=== PATIENT | male | born 1965 | race Caucasian/White ===

== ENCOUNTER 2020-09-26 14:56 | Outpatient (CLI) | payer OTHER, SELFPAY ==
[2020-09-26 15:04] LABS: SARS-CoV-2 Ag Positive (Negative)
== END 2020-09-26 14:57 | disposition home or self-care (01) ==
LOC: CHSLAB 14:59
PROVIDERS: PCP Family Medicine; Visit Provider Family Medicine
DX: U07.1 COVID-19 (principal)
CPT/HCPCS: 87426; C9803

== ENCOUNTER 2023-07-10 18:02 | Emergency (ER) | payer OTHER, MEDICAID, SELFPAY ==
--- NOTE | ~2023-07-10 | CT_ITS ---
EXAMINATION: CT abdomen pelvis wo con DATE: 07/10/2023 18:51 INDICATION: Left flank pain TECHNIQUE: Computed tomography (CT) of the abdomen and pelvis was performed without intravenous contr ast. Automated exposure control and iterative reconstruction technique were employed. The dose-length product was 1678.62 mGy-cm. COMPARISON: None FINDINGS: Mild bibasilar atelectasis. Heart size is normal. No pericardial or pleural effusion. Diffuse hepatic steatosis. Calcified gallstone in the otherwise normal-appearing gallbladder. Spleen, pancreas, bila teral adrenal glands are normal. Bilateral renal cysts the largest a 2.5 cm exophytic cyst at the upp er pole of the left kidney. Bilateral nephrolithiasis with 4 stones in left kidney measuring up to 9 mm and 3 stones in the right kidney measuring up to 4 mm. There are also couple stones in the distal left ureter the larger and more caudal measuring 6 x 5 x 3 mm and the more cephalad measuring 3 x 3 x 3 mm. There is mild left hydroureteronephrosis. Asymmetric moderate to severe atrophy at the right k idney. There is moderate colonic diverticulosis with a sigmoid predominance. There is no adjacent in flammatory change to suggest diverticulitis. Small bowel and appendix are normal. No free intraperit oscar gas or fluid. No pathologically enlarged abdominal or pelvic lymphadenopathy. Moderate thoracol umbar spondylosis with bridging osteophytes at multiple levels consistent with diffuse idiopathic ske letal hyperostosis (DISH). IMPRESSION: 1. Lateral nephrolithiasis with a couple obstructing stones in the distal left ureter the largest mt suring 6 x 5 x 3 mm with mild left hydroureteronephrosis. 2. Cholelithiasis. 3. Diffuse hepatic steatosis. 4. Diverticulosis. Reviewed, dictated and finalized at location A. IMPRESSION: 1. Lateral nephrolithiasis with a couple obstructing stones in the distal left ureter the largest measuring 6 x 5 x 3 mm with mild left hydroureteronephrosis. 2. Cholelithiasis. 3. Diffuse hepatic steatosis. 4. Diverticulosis.
[2023-07-10 18:02] VITALS: BP 183/105; PULSE 120; RESP 28; TEMP 36.3; O2SAT 96
--- NOTE | 2023-07-10 18:34 | ED.GENADULT ---
HPI - General Adult General Chief complaint: Back Pain/Injury Stated complaint: lower left black pain Time Seen by Provider: 07/10/23 18:13 Source: patient Mode of arrival: ambulatory Limitations: no limitations History of Present Illness HPI narrative: 57 yo M with history of kidney stone presents to ED with left flank pain started today. He has history of CKD, diabetes, and was told that one of the kidneys are non-functional. Onset (ago): hour(s) Location: left Radiation: flank Severity: severe Severity scale (1-10): >10 Pain Consistency: constant Relieving factors: none Exacerbating factors: none Associated symptoms: denies other symptoms Treatments prior to arrival: none Related Data Home Medications Medication Instructions Recorded Confirmed acetaminophen 300 mg-codeine 30 mg 1 tablet PO TID PRN Pain 07/10/23 07/10/23 tablet atorvastatin 10 mg tablet 10 mg PO DAILY 07/10/23 07/10/23 cyclobenzaprine 10 mg tablet 10 mg PO TID PRN Pain 07/10/23 07/10/23 ergocalciferol (vitamin D2) 1,250 1,250 mcg PO WEEKLY 07/10/23 07/10/23 mcg (50,000 unit) capsule glipizide 10 mg tablet, extended 20 mg PO DAILY 07/10/23 07/10/23 release 24 hr linagliptin 5 mg tablet (Tradjenta) 5 mg PO DAILY 07/10/23 07/10/23 Allergies Allergy/AdvReac Type Severity Reaction Status Date / Time No Known Allergies Allergy Unverified 12/24/22 10:14 Review of Systems Constitutional: Constitutional: Reports as per HPI and Reports no additional constitutional complaints Eyes: Eyes: Reports as per HPI and Reports no additional eye complaints ENT: Reports system reviewed and no additional complaints, except as documented and Reports as per HPI Cardiovascular: Cardiovascular: Reports as per HPI and Reports no additional cardiovascular complaints Respiratory: Respiratory: Reports as per HPI and Reports no additional respiratory complaints Gastrointestinal: Gastrointestinal: Reports as per HPI and Reports no additional gastrointestinal complaints Genitourinary: Genitourinary: Reports as per HPI Musculoskeletal: Musculoskeletal: Reports no additional musculoskeletal complaints and Reports as per HPI Integumentary/Breasts: Skin/Breast: Reports system reviewed and no additional complaints, except as docu and Reports as per HPI Neurologic: Reports system reviewed and no additional complaints, except as documented and Reports as per HPI Psychiatric: Psychiatric: Reports no additional psychiatric complaints and Reports as per HPI Endocrine: Endocrine: Reports no additional endocrine complaints and Reports as per HPI Hematologic/Lymphatic: Hematologic/Lymphatic: Reports no additional hematologic/lymphatic complaints and Reports as per HPI Allergic/Immunologic: Allergic/Immunologic: Reports no additional allergic/immunologic complaints and Reports as per HPI Exam Const: General: diaphoretic and ill appearing Nutritional Appearance: obese Orientation/consciousness: patient oriented x3 Resp: Effort & Inspection: normal respiratory effort Auscultation: clear to auscultation bilaterally Cardio: Rate: tachycardic Rhythm: regular rhythm GI: Auscultation: normal bowel sounds Back/Spine/Pelvis: Back: CVA tenderness (Left) Course Vital Signs Vital signs: Vital Signs Temperature 97.4 F L 07/10/23 18:02 Pulse Rate 120 H 07/10/23 18:02 Respiratory Rate 28 H 07/10/23 18:02 Blood Pressure 183/105 H 07/10/23 18:02 Pulse Oximetry 96 07/10/23 18:02 Oxygen Delivery Room Air 07/10/23 18:02 Temperature 97.4 F L 07/10/23 18:02 Pulse Rate 120 H 07/10/23 18:02 Respiratory Rate 28 H 07/10/23 18:02 Blood Pressure 183/105 H 07/10/23 18:02 Pulse Oximetry 96 07/10/23 18:02 Oxygen Delivery Room Air 07/10/23 18:02 Medical Decision Making MDM Narrative Medical decision making narrative: 57 yo M presents to ED due to left flank pain. CT scan confirmed bilateral nephrolithiasis with significant left kidney ston
[2023-07-10] MEDS: SODIUM CHLORIDE 0.9% IV 500 ML 999 ML IV CONT (18:52)
[2023-07-10] MEDS: HYDROmorphone HCL INJ (*CRX) 2 MG/ML VIAL 0.5 MG IV PUSH ×2 (18:53→20:51)
[2023-07-10 19:21] LABS: Hematocrit 47.1 % (40.0-54.0); Hemoglobin 15.2 g/dL (14.0-18.0); Mean Corpuscular HGB Conc 32.3 g/dL (32.0-36.0); Mean Corpuscular Hemoglobin 30.3 pg (27.0-31.0); Mean Corpuscular Volume 93.8 fL (78.0-102.0); Mean Platelet Volume 10.6 fl (8.7-11.0); Platelet Count Result 175 K/mm3 (150-420); Red Blood Count 5.02 M/mm3 (4.70-6.10); Red Cell Distribution Width 12.6 % (11.6-14.4); White Blood Count 7.5 K/mm3 (4.8-10.8)
[2023-07-10 19:35] LABS: Alanine Aminotransferase 35 U/L (16-63); Albumin Level 3.3 g/dL (3.4-5.0); Alkaline Phosphatase 84 U/L (46-116); Anion Gap 9 mmol/L (8-16); Aspartate Amino Transferase 25 U/L (15-37); Bilirubin,Total 0.5 mg/dL (0.00-1.00); Blood Urea Nitrogen 17 mg/dL (7-18); Calcium 8.9 mg/dL (8.5-10.1); Carbon Dioxide 26 mmol/L (21-32); Chloride 104 mmol/L (98-108); Estimated CRCL calculation 64 ml/min; Estimated Glomerular Filt Rate 41; Glucose 242 mg/dL (70-99); Osmolality Calculated 297 mOsm/kg (285-295); Potassium 3.9 mmol/L (3.5-5.1); Sodium 139 mmol/L (136-145); Total Protein 7.8 g/dL (6.4-8.2)
[2023-07-10 19:48] LABS: Appearance Urine Clear (Clear); Bilirubin Urine Negative (Negative); Blood Urine 2+ (Negative); Color Urine Light Yellow (Yellow); Glucose Urine UA 3+ (Negative); Ketones Urine Negative (Negative); Leukocyte Esterase Ur Negative LEU/UL (Negative); Nitrate Urine Negative (Negative); Protein Urine Negative (Negative); Urobilinogen Urine 0.2 mg/dL (0.2-1.0)
[2023-07-10 19:59] LABS: Add Urine Microscopic? YES; RBC Urine 0-2 /hpf (0-2)
[2023-07-10 20:22] VITALS: BP 127/87; PULSE 105; RESP 24; TEMP 36.4; O2SAT 96
[2023-07-10] MEDS: TAMSULOSIN HCL 0.4 MG CAPSULE PO (20:50)
== END 2023-07-10 22:13 | disposition short-term general hospital (02) ==
PROVIDERS: Emergency Provider Emergency Medicine; PCP Physician Assistant
DX: N20.0 Calculus of kidney (principal); Z79.899 Other long term (current) drug therapy
CPT/HCPCS: 36415; 74176; 80053; 81001; 85027; 96374; 96376; 99284; A9270; J1170; J7040

== ENCOUNTER 2023-07-10 23:43 | Observation (INO) | payer OTHER, MEDICAID, SELFPAY ==
--- NOTE | ~2023-07-10 | XR_ITS ---
EXAMINATION: XR retrograde pyelo w/stent LT DATE: 07/11/2023 10:02 INDICATION: Left ureteral stone. TECHNIQUE: 6 intraoperative fluoroscopic views of the abdomen and pelvis were obtained. I was not pre sent. Fluoroscopy exposure time was 36 seconds. COMPARISON: CT abdomen and pelvis 07/10/2023 FINDINGS: The left-sided retrograde pyelogram demonstrates a stone in the distal left ureter. The fin al images demonstrate a left internal ureteral stent in expected position. IMPRESSION: 1. Stone in distal left ureter. 2. Left internal ureteral stent in expected position. Reviewed, dictated and finalized at location A.
[2023-07-10 23:05] VITALS: BMI 50.5
--- NOTE | 2023-07-10 23:18 | ADMGEN ---
This patient, Ralf Ramos, was admitted to Medical Room 258-01. Patient/family oriented to hospital policies and general routines including ID bracelet, bed and alarms, visiting hours, pain management, procedures, bathroom and other care routines, personal items, smoking policy, room service/diet, and visiting hours. Information on how to activate the Rapid Response Team has been discussed. Patient/Family are encouraged to report perceived risks to care and to ask questions if they do not understand what they are told or what they should do.
[2023-07-10 23:48] VITALS: BP 147/72; PULSE 97; RESP 20; TEMP 36.7; O2SAT 95
[2023-07-10] MEDS: MORPHINE SULFATE (*CRX) 2 MG/ML INJ IV PUSH (23:51)
--- NOTE | 2023-07-10 23:55 | PM.IMHP ---
H&P: HPI History of Present Illness Date/Time: 07/10/23 23:55 Chief Complaint: Left flank pain Narrative: 57-year-old gentleman who has a past medical history of obesity diabetes mellitus hypertension CKD presents with left flank pain for the last 1 day associated with nausea vomiting. . His pain a 210 density is partially relieved with pain medication. He does have increased frequency urgency and burning while passing urine. He denies fever chills sweating. He occasionally has shortness of breath with pain but denies chest pain. He denies focal neurological weakness Review of Systems Review of Systems: All systems reviewed & are unremarkable except as noted in HPI and below Constitutional: Constitutional: Reports as per HPI Gastrointestinal: Gastrointestinal: Reports abdominal pain and Reports vomiting [facility] Social History Social History (System 12/24/22 @ 10:14 by Nicko Joyce) Smoking status: Former smoker Tobacco type: cigarettes Alcohol intake: never Substance use: never Substance use type: does not use Lack of Transportation: No Lack of Food: Never True Current Housing: I Have Housing Concerned About Future Housing: No Difficulty Paying Gas/Electric Bills: No Difficulty Paying for Meds: No Currently Unemployed: No Education: High School Diploma/GED Difficulty w/ Childcare or Family Care: No Spiritual care concerns: No Meds Home Medications and Allergies Home Medications Medication Instructions Recorded Confirmed Type acetaminophen 300 mg-codeine 30 mg 1 tablet PO TID PRN Pain 07/10/23 07/10/23 History tablet acetaminophen 500 mg tablet 1,500 mg PO HS PRN Pain (Scale 07/10/23 07/10/23 History (Acetaminophen Extra Strength) Score 4-6) atorvastatin 10 mg tablet 10 mg PO DAILY 07/10/23 07/10/23 History cyclobenzaprine 10 mg tablet 10 mg PO TID PRN Pain 07/10/23 07/10/23 History ergocalciferol (vitamin D2) 1,250 1,250 mcg PO WEEKLY 07/10/23 07/10/23 History mcg (50,000 unit) capsule glipizide 10 mg tablet, extended 20 mg PO DAILY 07/10/23 07/10/23 History release 24 hr linagliptin 5 mg tablet (Tradjenta) 5 mg PO DAILY 07/10/23 07/10/23 History Allergies Allergy/AdvReac Type Severity Reaction Status Date / Time No Known Allergies Allergy Unverified 12/24/22 10:14 Vital Signs Vital Signs - 24 hr 07/10/23 23:05 07/10/23 23:48 Temperature 98.1 F Pulse Rate 97 Respiratory Rate 20 Blood Pressure 147/72 H Pulse Oximetry 95 Oxygen Delivery Room Air Exam Narrative: General : alert awake oriented in mild distress HEENT: PERRLA extraocular movements intact Neck : supple no JVD Heart : S1 and S2 Chest : bilateral air entry no wheezing or crackles Abdomen : soft tenderness left flank bowel sounds present Extremities : no ankle edema Skin : no erythema or redness noted 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 Cholelithiasis.. Diffuse hepatic steatosis.. Diverticulosis. UA is unremarkable NPO IV fluid Pain medication Antiemetics Urology consulted (2) Diabetes 1.5, managed as type 2: Code(s): E13.9 - Other specified diabetes mellitus without complications Status: Acute Assessment and Plan: Monitor blood glucose a.c. HS nose Low-dose sliding scale insulin Hold oral anti diabetics Restart off the intervention (3) CKD (chronic kidney disease): Code(s): N18.9 - Chronic kidney disease, unspecified Status: Acute Assessment and Plan: Creatinine is 1.73 Gentle hydration Monitor labs
[2023-07-11] VITALS (12 sets, daily range): BP systolic 104–161; BP diastolic 8–91; PULSE 75–93; RESP 12–20; TEMP 36.2–36.6; O2SAT 92–100
[2023-07-11] MEDS: SODIUM CHLORIDE 0.9% IV 1,000 ML 100 ML IV CONT ×3 (02:17→13:58)
[2023-07-11] MEDS: MORPHINE SULFATE (*CRX) 2 MG/ML INJ IV PUSH ×2 (02:31→05:12)
[2023-07-11 05:16] LABS: Hematocrit 48.2 % (42.0-52.0); Mean Corpuscular HGB Conc 31.1 g/dl (32-36); Mean Corpuscular Hemoglobin 29.9 pg (26-34); Platelet Count Result 164 k/mm3 (150-375); Red Blood Count 5.02 M/mm3 (4.6-6.20); Red Cell Distribution Width 12.7 % (11.5-14.5); White Blood Count 10.3 K/mm3 (4.5-10.0)
[2023-07-11 05:27] LABS: Anion Gap 5 mmol/L (8-16); Blood Urea Nitrogen 23 mg/dL (9-20); Carbon Dioxide 27 mmol/L (22-30); Chloride 104 mmol/L (98-107); Estimated CRCL calculation 48 ml/min; Estimated Glomerular Filt Rate 29; Glucose 207 mg/dL (65-110); Potassium 5.3 mmol/L (3.4-5.0); Sodium 136 mmol/L (137-145)
[2023-07-11 08:02] LABS: Glucose Point of Care 177 mg/dl (65-105)
[2023-07-11] MEDS: ACETAMINOPHEN/CODEINE (*CRX) 300/30 MG TABLET 1 TAB PO (08:06)
--- NOTE | 2023-07-11 08:57 | WPDURCON ---
Assessment and Plan Assessment and plan (1) Left ureteral stone: Code(s): N20.1 - Calculus of ureter Status: Acute Assessment and Plan: Left ureteral stone, appears to be functionally dominant kidney. Cr rising. Plan to OR for cysto, L stent today, possible URS with extraction of distal stone if close to orifice. Will need definitive stone managment down the line given larger lower pole stone. - risks, benefits discussed. Consent provided. (2) CKD (chronic kidney disease): Code(s): N18.9 - Chronic kidney disease, unspecified Status: Acute Assessment and Plan: baseline somewhat unknown, but reports he's been told he has poor kidney funciton. Cr 1.7 last night to 2.3 this AM. Suspect left renal obstruction is contributory Urology Consult Note HPI Date Seen: 07/11/23 Requesting Physician: Alcon Cook MD Primary Care Provider: Leo Sanchez, [facility] Consult Narrative Narrative: Ralf Ramos is a 57 year old male with history of CKD, DM, COPD here with left flank pain x24 hours who came to ER last night and was found to have a 6 mm distal left ureteral stone and larger lower pole stone in what appears functionally dominant kidney. He was admitted overnight. Pain control given. His Cr jose a this morning to 2.3. Has been afebrile. reports diminished urine output. Review of Systems Review of Systems: All systems reviewed & are unremarkable except as noted in HPI and below [facility] Social History Social History Smoking status: Former smoker Tobacco type: cigarettes Alcohol intake: never Substance use: never Substance use type: does not use Lack of Transportation: No Lack of Food: Never True Current Housing: I Have Housing Concerned About Future Housing: No Difficulty Paying Gas/Electric Bills: No Difficulty Paying for Meds: No Currently Unemployed: No Education: High School Diploma/GED Difficulty w/ Childcare or Family Care: No Spiritual care concerns: No Meds Home Medications and Allergies Home Medications Medication Instructions Recorded Confirmed Type acetaminophen 300 mg-codeine 30 mg 1 tablet PO TID PRN Pain 07/10/23 07/10/23 History tablet acetaminophen 500 mg tablet 1,500 mg PO HS PRN Pain (Scale 07/10/23 07/10/23 History (Acetaminophen Extra Strength) Score 4-6) atorvastatin 10 mg tablet 10 mg PO DAILY 07/10/23 07/10/23 History cyclobenzaprine 10 mg tablet 10 mg PO TID PRN Pain 07/10/23 07/10/23 History ergocalciferol (vitamin D2) 1,250 1,250 mcg PO WEEKLY 07/10/23 07/10/23 History mcg (50,000 unit) capsule glipizide 10 mg tablet, extended 20 mg PO DAILY 07/10/23 07/10/23 History release 24 hr linagliptin 5 mg tablet (Tradjenta) 5 mg PO DAILY 07/10/23 07/10/23 History Allergies Allergy/AdvReac Type Severity Reaction Status Date / Time No Known Allergies Allergy Unverified 12/24/22 10:14 Vital Signs Vital Signs - 24 hr 07/10/23 23:05 07/10/23 23:48 07/11/23 04:47 Temperature 36.7 C 36.2 C L Pulse Rate 97 89 Respiratory Rate 20 20 Blood Pressure 147/72 H 161/91 H Pulse Oximetry 95 97 Oxygen Delivery Room Air 07/11/23 07:57 Temperature 36.3 C L Pulse Rate 93 Respiratory Rate 18 Blood Pressure 149/80 H Pulse Oximetry 96 Oxygen Delivery Exam Narrative: lying in bed, NAD Resp: Other: non-labored Cardio: Rate: regular rate GI: Inspection: non-distended GI Palp: Yes Soft to palpation, No Tenderness to palpation present (GI) and No Guarding due to palpation present (GI) : Male General Exam: Yes normal external exam Results Labs 07/11/23 04:39 07/11/23 04:39 Labs: Short CBC 07/11/23 Range/Units 04:39 WBC 10.3 H (4.5-10.0) K/mm3 Hgb 15.0 (14.0-18.0) g/dL Hct 48.2 (42.0-52.0) % Plt Count 164 (150-375) k/mm3 [facility] 07/11/23 04:39 Sodium 136 L Pota
--- NOTE | 2023-07-11 09:01 | WPDANESEPPF ---
Anes - Initial Pre Proc Eval Procedure: Operation Date: 07/11/23 09:00 Proposed Procedures p Cysto, RPG, Stone Ext, Stent Placement(Left) - Isauro Torres MD Date/Time: 07/11/23 09:01 Surgeon: Alcon Cook MD Pre Op Diagnosis: Nephrolithiasis Patient Data Age: 57 Gender: M Height: 1.78 m Weight: 159.8 kg Last Vital Signs Temp 36.3 C L 07/11/23 07:57 Pulse 93 07/11/23 07:57 Resp 18 07/11/23 07:57 BP 149/80 H 07/11/23 07:57 Pulse Ox 96 07/11/23 07:57 O2 Del Method Room Air 07/10/23 23:05 Allergies Allergy/AdvReac Type Severity Reaction Status Date / Time No Known Allergies Allergy Unverified 12/24/22 10:14 Home Medications Medication Instructions Recorded Confirmed Type acetaminophen 300 mg-codeine 30 mg 1 tablet PO TID PRN Pain 07/10/23 07/10/23 History tablet acetaminophen 500 mg tablet 1,500 mg PO HS PRN Pain (Scale 07/10/23 07/10/23 History (Acetaminophen Extra Strength) Score 4-6) atorvastatin 10 mg tablet 10 mg PO DAILY 07/10/23 07/10/23 History cyclobenzaprine 10 mg tablet 10 mg PO TID PRN Pain 07/10/23 07/10/23 History ergocalciferol (vitamin D2) 1,250 1,250 mcg PO WEEKLY 07/10/23 07/10/23 History mcg (50,000 unit) capsule glipizide 10 mg tablet, extended 20 mg PO DAILY 07/10/23 07/10/23 History release 24 hr linagliptin 5 mg tablet (Tradjenta) 5 mg PO DAILY 07/10/23 07/10/23 History Laboratory Tests 07/11/23 07/11/23 04:39 07:59 WBC 10.3 H K/mm3 (4.5-10.0) RBC 5.02 M/mm3 (4.6-6.20) Hgb 15.0 g/dL (14.0-18.0) Hct 48.2 % (42.0-52.0) MCV 96.0 fl (80-100) MCH 29.9 pg (26-34) MCHC 31.1 L g/dl (32-36) RDW 12.7 % (11.5-14.5) Plt Count 164 k/mm3 (150-375) MPV 11.0 H fl (7.4-10.4) Sodium 136 L mmol/L (137-145) Potassium 5.3 H mmol/L (3.4-5.0) Chloride 104 mmol/L (98-107) Carbon Dioxide 27 mmol/L (22-30) Anion Gap 5 L mmol/L (8-16) BUN 23 H mg/dL (9-20) Creatinine 2.30 H mg/dL (0.7-1.3) Estim Creat Clear Calc 48 ml/min Estimated GFR 29 L (59 - ) Glucose 207 H mg/dL (65-110) POC Capillary Glucose 177 H mg/dl (65-105) Calcium 9.0 mg/dL (8.4-10.2) Patient hx anesthesia problems: post op nausea/vomiting Family hx anesthesia problems: none Results Review: All pre-operative results and documents have been reviewed as part of the pre-operative evaluation. [facility] Social History Social History Smoking status: Former smoker Tobacco type: cigarettes Alcohol intake: never Substance use: never Substance use type: does not use Lack of Transportation: No Lack of Food: Never True Current Housing: I Have Housing Concerned About Future Housing: No Difficulty Paying Gas/Electric Bills: No Difficulty Paying for Meds: No Currently Unemployed: No Education: High School Diploma/GED Difficulty w/ Childcare or Family Care: No Spiritual care concerns: No Anes - Eval Final PreProcedure Day of Procedure 07/11/23 09:01 Patient weight: super morbidly obese Heart: regular rate and rhythm Lungs: clear to auscultation Airway: Mallampati scale class II Neurological: alert and oriented Last oral intake: >/= 8 hours ASA classification: III Emergent: no Anesthetic plan: proceed Anesthesia type and monitoring: general GIVS and LMA and standard monitoring Results Review: All pre-operative results and documents have been reviewed as part of the pre-operative evaluation. Informed Consent: The patient's anesthetic plan and its attendant risks and benefits were discussed with the patient/family/POA. Questions were solicited and answers provided to the satisfaction of the patient/family/POA.
--- NOTE | 2023-07-11 09:10 | PC.NURSE ---
Patient taken down to PACU for procedure
--- NOTE | 2023-07-11 09:14 | SUR.PREOP ---
PATIENT TO OR AT 0913. CONSENT SIGNED.
[2023-07-11] MEDS: ceFAZolin SODIUM 1 GM VIAL 3 GM IV PUSH (09:23)
[2023-07-11] MEDS: LIDOCAINE HCL 2% GEL UROJET 10 ML PKG MUCOUS MEM (09:27)
--- NOTE | 2023-07-11 09:55 | W.PM.PROC2 ---
Procedure Note - Detailed Date of Procedure 07/11/23 Pre-op Diagnosis Nephrolithiasis Acute kidney injury Post-op Diagnosis Same Procedure Performed Cystoscopy Left retrograde pyelogram Left ureteroscopy Laser lithotripsy Stone extraction Left ureteral stent placement Surgeon Isauro Torres MD Anesthesia General Indications Patient is a 57-year-old man with history of nephrolithiasis who presented yesterday with left flank pain was found to have multiple stones including a 7 mm distal left stone with creatinine elevation in what appears to be functionally dominant left kidney. Findings Large firm stone in distal ureter able to be fragmented fully removed Description of Procedure After obtaining informed consent we proceed to the operating room. The patient was placed in the supine position. General anesthesia was induced. SCD boots were placed. He was given dose of antibiotics. He was then placed in lithotomy position and prepped and draped in usual sterile manner. We began by passing a well lubricated 22 Gabonese cystoscope to the urethra. There were no abnormalities along the course of the urethra. We entered the bladder. The bladder is emptied of all urine. We performed a funduscopic evaluation of bladder there were no unexpected mucosal findings. We focused on the left ureteral orifice. This was cannulated with 5 Gabonese catheter. After obtaining telephone maintenance mechanic images gentle retrograde pyelogram was performed. This demonstrated a filling defect in distal ureter consistent with stone and proximal dilation. A zip wire was passed alongside the stone up into an upper pole calyx. The cystoscope was withdrawn. An 8-10 dilator was used to dilate the distal ureter. No obvious purulent urine was visualized coming from above the stone. Given this the patient has normal urinalysis I elected to perform ureteroscopy. Semi. Rigid ureteral scope was passed into the distal ureter. The stone was visualized 2 cm proximal to the UVJ. An initial attempt was made to grasp this with a Nitinol basket and extracted however there was resistance in the intramural tunnel. Given his 200 micron laser fiber was passed. The stone was fragmented into 5 small pieces. These were grasped with a basket and withdrawn. There was no evidence of ureteral injury perforation or other unexpected issue. Ureteroscopic evaluation of the ureter to above the iliacs demonstrated no residual stone fragments. Scope was withdrawn. The cystoscope was reintroduced and all stone fragments were irrigated from the bladder collected and sent for analysis. Next a 6 Gabonese variable length stent was passed over the wire. There was good curl in a upper pole calyx or in the course of the ureter with good curl within the bladder. The bladder is emptied. A Fried catheter was placed. This concluded the procedure which the patient tolerated without apparent complication. We will have him return to the floor with Fried in place and monitor renal function overnight. Assuming it is improving hopefully he can be discharged home tomorrow. He will need follow-up for stent and management of the remaining nonobstructing stone small left kidney. Implants Six Gabonese variable length ureteral stent Estimated Blood Loss 2 (ml) Urine Output 50
[2023-07-11 10:13] LABS: Glucose Point of Care 164 mg/dl (65-105)
[2023-07-11] MEDS: fentaNYL CITRATE INJ (*CRX) 100 MCG/2 ML VIAL 25 MCG IV PUSH ×6 (10:20→11:18)
--- NOTE | 2023-07-11 11:35 | PC.NURSE ---
Patient returned from surgery, report received from Katherine ADAME
[2023-07-11 11:51] LABS: Glucose Point of Care 160 mg/dl (65-105)
[2023-07-11 11:59] LABS: Carbon Dioxide 23 mmol/L (22-30); Chloride 106 mmol/L (98-107); Potassium 5.2 mmol/L (3.4-5.0); Sodium 138 mmol/L (137-145)
[2023-07-11 12:00] LABS: Anion Gap 9 mmol/L (8-16); Blood Urea Nitrogen 23 mg/dL (9-20); Calcium 8.7 mg/dL (8.4-10.2); Estimated CRCL calculation 41 ml/min; Estimated Glomerular Filt Rate 24; Glucose 176 mg/dL (65-110)
[2023-07-11] MEDS: ATORVASTATIN 10 MG TABLET PO (12:24)
--- NOTE | 2023-07-11 14:27 | PM.IMPN ---
Progress Note: A&P Assessment and Plan (1) Bilateral nephrolithiasis: Code(s): N20.0 - Calculus of kidney Status: Acute Assessment and Plan: CT abdomen pelvis shows lateral nephrolithiasis with a couple of structuring stones with the largest measuring in the left ureter 6 x 5 x 3 mm with mild left hydroureteronephrosis. UA no signs of infection. IV fluids Pain medication antiemetics p.r.n. Urology consult appreciate recommendations Cystoscopy with lithotripsy and stent placement performed on 07/11/2023 Urinary catheter placed (2) Diabetes 1.5, managed as type 2: Code(s): E13.9 - Other specified diabetes mellitus without complications Status: Acute Assessment and Plan: Monitor blood glucose a.c. HS nose Low-dose sliding scale insulin Hold oral anti diabetics (3) CKD (chronic kidney disease): Code(s): N18.9 - Chronic kidney disease, unspecified Status: Acute Assessment and Plan: Creatinine is 1.73 on admission. Worsened to 2.3 today Gentle hydration Monitor labs Subjective Date/time seen: 07/11/23 14:27 Interval history: Patient states that his pain is well controlled. He is very tired will after his procedure. Urinary catheter placed. Will likely discontinue catheter tomorrow. Exam Narrative: GENERAL: Comfortable, no acute distress HENMT: moist mucous membranes EYES: EOM intact b/l NECK: no lymphadenopathy RESPIRATORY: clear to auscultation CARDIO: RRR GI: soft, nontender, bowel sounds present SKIN: no rashes EXTREMITIES: no edema, redness or tenderness Objective Data Vital Signs Vital Signs: Vital Signs - 24 hr 07/10/23 23:05 07/10/23 23:48 07/11/23 04:47 Temperature 98.1 F 97.2 F L Pulse Rate 97 89 Respiratory Rate 20 20 Blood Pressure 147/72 H 161/91 H Pulse Oximetry 95 97 Oxygen Delivery Room Air Oxygen Flow Rate 07/11/23 07:57 07/11/23 08:20 07/11/23 10:04 Temperature 97.4 F L 97.1 F L Pulse Rate 93 91 Respiratory Rate 18 12 Blood Pressure 149/80 H 133/65 Pulse Oximetry 96 100 Oxygen Delivery Room Air Simple Face Mask Oxygen Flow Rate 8 07/11/23 10:15 07/11/23 10:30 07/11/23 10:45 Temperature Pulse Rate 77 77 79 Respiratory Rate 15 13 18 Blood Pressure 122/70 123/69 127/8 L Pulse Oximetry 100 100 94 Oxygen Delivery Simple Face Mask Simple Face Mask Room Air Oxygen Flow Rate 8 8 07/11/23 11:00 07/11/23 11:15 07/11/23 11:34 Temperature 97.3 F L Pulse Rate 76 78 75 Respiratory Rate 13 17 20 Blood Pressure 121/73 121/66 140/67 Pulse Oximetry 93 96 95 Oxygen Delivery Room Air Room Air Oxygen Flow Rate 07/11/23 11:45 Temperature 97.6 F Pulse Rate 75 Respiratory Rate 18 Blood Pressure 132/60 Pulse Oximetry 94 Oxygen Delivery Oxygen Flow Rate Intake/Output Intake/Output: Intake & Output 07/08/23 07/09/23 07/10/23 07/11/23 23:59 23:59 23:59 23:59 Intake Total 950 Output Total 470 Balance 480 Meds/Results Medications: Active Medications Generic Name Dose Route Start Last Admin Trade Name Freq PRN Reason Stop Dose Admin Acetaminophen 1,000 mg 07/11/23 14:05 Acetaminophen 500 Mg Tablet PO HS PRN Pain at night (with flexeril) Acetaminophen/Codeine Phosphate 1 tab 07/10/23 23:46 07/11/23 08:06 Acetaminophen/Codeine (*Crx) 300/30 Mg Tablet PO 1 tab TID PRN Administration Pain 4-6 Atorvastatin Calcium 10 mg 07/11/23 09:00 07/11/23 12:24 Atorvastatin 10 Mg Tablet PO 10 mg DAILY MINOO Administration Cyclobenzaprine HCl 10 mg 07/10/23 23:46 Cyclobenzaprine Hcl 10 Mg Tablet PO TID PRN LOWER BACK PAIN Dextrose 12.5 gm 07/10/23 23:44 Dextrose 50% 25 Gm/50 Ml Syringe IV PUSH PRN PRN Hypoglycemia Protocol Ergocalciferol 50,000 units 07/24/23 09:00 Ergocalciferol 50,000 Units Capsule PO Sa@0900 [facility] Glipizide 20 mg 07/12/23
[2023-07-11 16:32] LABS: Glucose Point of Care 222 mg/dl (65-105)
[2023-07-11] MEDS: INSULIN ASPART (*BKC) 100 UNITS/ML SUB-Q (16:33)
[2023-07-11 19:44] LABS: Glucose Point of Care 256 mg/dl (65-105)
[2023-07-11] MEDS: ACETAMINOPHEN 500 MG TABLET 1000 MG PO (22:56)
[2023-07-11] MEDS: CYCLOBENZAPRINE HCL 10 MG TABLET PO (22:57)
[2023-07-12] MEDS: SODIUM CHLORIDE 0.9% IV 1,000 ML 100 ML IV CONT ×3 (01:00→18:09)
[2023-07-12 05:26] LABS: Hematocrit 43.9 % (42.0-52.0); Mean Corpuscular HGB Conc 31.9 g/dl (32-36); Mean Corpuscular Hemoglobin 30.4 pg (26-34); Mean Corpuscular Volume 95.4 fl (80-100); Mean Platelet Volume 11.3 fl (7.4-10.4); Platelet Count Result 173 k/mm3 (150-375); Red Cell Distribution Width 12.8 % (11.5-14.5); White Blood Count 10.3 K/mm3 (4.5-10.0)
[2023-07-12 05:39] LABS: Alanine Aminotransferase 24 U/L (6-50); Albumin Level 3.8 g/dL (3.5-5.1); Alkaline Phosphatase 70 U/L (38-126); Anion Gap 7 mmol/L (8-16); Aspartate Amino Transferase 27 U/L (17-59); Bilirubin,Total 0.7 mg/dL (0.2-1.3); Blood Urea Nitrogen 23 mg/dL (9-20); Calcium 8.6 mg/dL (8.4-10.2); Carbon Dioxide 23 mmol/L (22-30); Chloride 107 mmol/L (98-107); Estimated CRCL calculation 46 ml/min; Estimated Glomerular Filt Rate 28; Glucose 179 mg/dL (65-110); Potassium 4.6 mmol/L (3.4-5.0); Sodium 137 mmol/L (137-145)
[2023-07-12 05:43] VITALS: BP 116/55; PULSE 67; RESP 18; TEMP 36.7; O2SAT 94
--- NOTE | 2023-07-12 07:56 | WPDANESPN ---
Anes - Prog Note Post-Op Date/Time: 07/12/23 07:56 Cardiovascular status: normal Respiratory status: normal Airway patency: baseline Mental status: baseline Post-Op hydration status: normal Vital Signs: Last Vital Signs Temp 36.7 C 07/12/23 05:43 Pulse 67 07/12/23 05:43 Resp 18 07/12/23 05:43 BP 116/55 L 07/12/23 05:43 Pulse Ox 94 07/12/23 05:43 O2 Del Method Room Air 07/11/23 20:00 O2 Flow Rate 8 07/11/23 10:30 Pain Score (VAS): 12/04 I/O: Intake & Output 07/11/23 07/11/23 07/12/23 15:59 23:59 07:59 Intake Total 1190 1590 550 Output Total 945 583 5343 Balance 970 690 -1050 Laboratory Tests 07/12/23 04:30 07/12/23 04:30 07/11/23 07/11/23 07/11/23 07:59 10:11 11:46 WBC RBC Hgb Hct MCV MCH MCHC RDW Plt Count MPV Sodium 138 Potassium 5.2 H Chloride 106 Carbon Dioxide 23 Anion Gap 9 BUN 23 H Creatinine 2.70 H Estim Creat Clear Calc 41 Estimated GFR 24 L Glucose 176 H POC Capillary Glucose 177 H 164 H 160 H Calcium 8.7 Total Bilirubin AST ALT Alkaline Phosphatase Total Protein Albumin 07/11/23 07/11/23 07/12/23 16:29 19:39 04:30 WBC 10.3 H RBC 4.60 Hgb 14.0 Hct 43.9 MCV 95.4 MCH 30.4 MCHC 31.9 L RDW 12.8 Plt Count 173 MPV 11.3 H Sodium 137 Potassium 4.6 Chloride 107 Carbon Dioxide 23 Anion Gap 7 L BUN 23 H Creatinine 2.40 H Estim Creat Clear Calc 46 Estimated GFR 28 L Glucose 179 H POC Capillary Glucose 222 H 256 H Calcium 8.6 Total Bilirubin 0.7 AST 27 ALT 24 Alkaline Phosphatase 70 Total Protein 8.0 Albumin 3.8 Post-procedural complaints: none Patient Feedback: Patient satisfied with anesthetic care.
[2023-07-12 08:00] VITALS: O2SAT 94
[2023-07-12] MEDS: glipiZIDE XL 5 MG TABCR 20 MG PO (08:06)
[2023-07-12] MEDS: ATORVASTATIN 10 MG TABLET PO (08:07)
[2023-07-12 08:09] LABS: Glucose Point of Care 144 mg/dl (65-105)
[2023-07-12 11:24] LABS: Glucose Point of Care 198 mg/dl (65-105)
[2023-07-12] MEDS: polyethylene glycoL 3350 17 GM POWD.PACK PO (13:48)
[2023-07-12] MEDS: DOCUSATE SODIUM 100 MG CAPSULE PO (13:48)
[2023-07-12 14:00] VITALS: BP 127/60; PULSE 84; RESP 16; TEMP 36.7; O2SAT 93
--- NOTE | 2023-07-12 15:19 | PM.IMPN ---
Progress Note: A&P Assessment and Plan (1) Bilateral nephrolithiasis: Code(s): N20.0 - Calculus of kidney Status: Inactive Assessment and Plan: CT abdomen pelvis shows lateral nephrolithiasis with a couple of structuring stones with the largest measuring in the left ureter 6 x 5 x 3 mm with mild left hydroureteronephrosis. UA no signs of infection. IV fluids Pain medication antiemetics p.r.n. Urology consult appreciate recommendations Cystoscopy with lithotripsy and stent placement performed on 07/11/2023 Urinary catheter placed (2) Diabetes 1.5, managed as type 2: Code(s): E13.9 - Other specified diabetes mellitus without complications Status: Acute Assessment and Plan: Monitor blood glucose a.c. HS nose Low-dose sliding scale insulin Hold oral anti diabetics (3) CKD (chronic kidney disease): Code(s): N18.9 - Chronic kidney disease, unspecified Status: Acute Assessment and Plan: Creatinine is 1.73 on admission. Creatinine trend: 1.7, 2.3, 2.7, 2.4.. Gentle hydration Monitor labs Subjective Date/time seen: 07/12/23 15:19 Interval history: Patient doing well today and eager for discharge. Discussed with patient that his creatinine is still elevated at that it would be sullivan to continue IV fluids and monitoring for 1 more day. will plan on removing catheter in the morning unless urology recommends otherwise. Patient denies any pain. Exam Narrative: GENERAL: Comfortable, no acute distress HENMT: moist mucous membranes EYES: EOM intact b/l NECK: no lymphadenopathy RESPIRATORY: clear to auscultation CARDIO: RRR GI: soft, nontender, bowel sounds present SKIN: no rashes EXTREMITIES: no edema, redness or tenderness Objective Data Vital Signs Vital Signs: Vital Signs - 24 hr 07/11/23 20:00 07/11/23 21:10 07/12/23 05:43 Temperature 97.9 F 98.0 F Pulse Rate 82 67 Respiratory Rate 18 18 Blood Pressure 107/57 L 116/55 L Pulse Oximetry 92 94 Oxygen Delivery Room Air 07/12/23 08:00 07/12/23 14:00 Temperature 98.0 F Pulse Rate 84 Respiratory Rate 16 Blood Pressure 127/60 Pulse Oximetry 94 93 Oxygen Delivery Room Air Intake/Output Intake/Output: Intake & Output 1007/10/23 07/11/23 07/12/23 23:59 23:59 23:59 23:59 Intake Total 2780 2270 Output Total 1370 1600 Balance 1410 670 Meds/Results Medications: Active Medications Generic Name Dose Route Start Last Admin Trade Name Freq PRN Reason Stop Dose Admin Acetaminophen 1,000 mg 07/11/23 14:05 07/11/23 22:56 Acetaminophen 500 Mg Tablet PO 1,000 mg HS PRN Administration Pain at night (with flexeril) Acetaminophen/Codeine Phosphate 1 tab 07/10/23 23:46 07/11/23 08:06 Acetaminophen/Codeine (*Crx) 300/30 Mg Tablet PO 1 tab TID PRN Administration Pain 4-6 Atorvastatin Calcium 10 mg 07/11/23 09:00 07/12/23 08:07 Atorvastatin 10 Mg Tablet PO 10 mg DAILY MINOO Administration Cyclobenzaprine HCl 10 mg 07/10/23 23:46 07/11/23 22:57 Cyclobenzaprine Hcl 10 Mg Tablet PO 10 mg TID PRN Administration LOWER BACK PAIN Dextrose 12.5 gm 07/10/23 23:44 Dextrose 50% 25 Gm/50 Ml Syringe IV PUSH PRN PRN Hypoglycemia Protocol Docusate Sodium 100 mg 07/12/23 12:58 07/12/23 13:48 Docusate Sodium 100 Mg Capsule PO 100 mg Q12H PRN Administration Constipation Ergocalciferol 50,000 units 07/24/23 09:00 Ergocalciferol 50,000 Units Capsule PO Sa@0900 MINOO Glipizide 20 mg 07/12/23 09:00 07/12/23 08:06 Glipizide Xl 5 Mg Tabcr PO 20 mg DAILY MINOO Administration Glucagon 1 mg 07/10/23 23:44 Glucagon For Inj 1 Mg Vial IM PRN PRN Hypoglycemia Protocol Glucose 15 gm 07/10/23 23:44 Glucose Oral Gel 15 Gm Of Glucse In 37.5 Gm Tube PO PRN PRN Hypoglycemia Protocol Hydralazine HCl 10 mg 06/27
[2023-07-12 16:57] LABS: Glucose Point of Care 152 mg/dl (65-105)
[2023-07-12] MEDS: CYCLOBENZAPRINE HCL 10 MG TABLET PO (18:46)
[2023-07-12] MEDS: ACETAMINOPHEN 500 MG TABLET 1000 MG PO (18:46)
[2023-07-12 20:15] LABS: Glucose Point of Care 181 mg/dl (65-105)
[2023-07-12 20:30] VITALS: BP 139/71; PULSE 81; RESP 18; TEMP 36.8; O2SAT 95
[2023-07-12] MEDS: ACETAMINOPHEN/CODEINE (*CRX) 300/30 MG TABLET 1 TAB PO (21:19)
[2023-07-13] MEDS: ACETAMINOPHEN 500 MG TABLET 1000 MG PO (01:09)
[2023-07-13] MEDS: CYCLOBENZAPRINE HCL 10 MG TABLET PO (01:10)
[2023-07-13 04:46] VITALS: BP 123/74; PULSE 69; RESP 18; TEMP 37.1; O2SAT 94
[2023-07-13 05:58] LABS: Hematocrit 44.1 % (42.0-52.0); Hemoglobin 13.8 g/dL (14.0-18.0); Mean Corpuscular HGB Conc 31.3 g/dl (32-36); Mean Corpuscular Hemoglobin 30.7 pg (26-34); Mean Platelet Volume 11.1 fl (7.4-10.4); Platelet Count Result 173 k/mm3 (150-375); Red Cell Distribution Width 12.9 % (11.5-14.5); White Blood Count 8.4 K/mm3 (4.5-10.0)
[2023-07-13 06:11] LABS: Anion Gap 5 mmol/L (8-16); Blood Urea Nitrogen 23 mg/dL (9-20); Calcium 8.4 mg/dL (8.4-10.2); Carbon Dioxide 27 mmol/L (22-30); Chloride 107 mmol/L (98-107); Estimated CRCL calculation 65 ml/min; Estimated Glomerular Filt Rate 41; Glucose 131 mg/dL (65-110); Potassium 4.2 mmol/L (3.4-5.0); Sodium 139 mmol/L (137-145)
[2023-07-13 08:00] VITALS: O2SAT 94
[2023-07-13 08:37] LABS: Glucose Point of Care 111 mg/dl (65-105)
[2023-07-13] MEDS: ATORVASTATIN 10 MG TABLET PO (09:06)
[2023-07-13] MEDS: DOCUSATE SODIUM 100 MG CAPSULE PO (09:06)
[2023-07-13] MEDS: polyethylene glycoL 3350 17 GM POWD.PACK PO (09:06)
[2023-07-13] MEDS: glipiZIDE XL 5 MG TABCR 20 MG PO (09:06)
--- NOTE | 2023-07-13 10:18 | PM.DS ---
DS: Admitting Diagnosis Discharge Date 07/13/23 Admitting Diagnosis Left ureteral stone, CHARLY DS: Discharge Diagnosis Discharge Diagnosis (1) Bilateral nephrolithiasis: Code(s): N20.0 - Calculus of kidney Status: Inactive (2) Diabetes 1.5, managed as type 2: Code(s): E13.9 - Other specified diabetes mellitus without complications Status: Acute (3) CKD (chronic kidney disease): Code(s): N18.9 - Chronic kidney disease, unspecified Status: Acute DS: Summary Hospital Course Hospital Course: This is the 57-year-old male with a past medical history of diabetes, CKD, and hyperlipidemia the presented to the ED on 07/10/2023 due to left flank pain, nausea vomiting. CT abdomen pelvis revealed a 6 x 5 x 3 mm left ureteral stone with associated hydroureteronephrosis. Urology consulted. Patient underwent left ureteroscopy, lithotripsy and stent placement on 07/11/2023. Patient's creatinine on admission was 1.7 and trended up to 2.7 prior to ureteroscopy. Patient had urinary catheter placed and creatinine went back down to 1.7 on day of discharge. Patient's urine was negative for infection. He remained on IV fluids throughout his hospital stay due to CHARLY. Advised to follow-up with urology as an outpatient in 7-10 days. Labs and vital signs are stable and he is medically cleared for discharge at this time. Time Spent with Patient Time attestation: Total time spent providing and/or coordinating discharge services: Exam Narrative: GENERAL: Comfortable, no acute distress HENMT: moist mucous membranes EYES: EOM intact b/l NECK: no lymphadenopathy RESPIRATORY: clear to auscultation CARDIO: RRR GI: soft, nontender, bowel sounds present SKIN: no rashes EXTREMITIES: no edema, redness or tenderness DS: Data Data Completed and Pending Pending studies at discharge: Pending at discharge 07/11/23 09:54 Surgical [PTH] Routine Labs on day of discharge: Labs from last 24 hours 07/13/23 07/13/23 07/12/23 08:32 05:05 20:11 WBC 8.4 RBC 4.50 L Hgb 13.8 L Hct 44.1 MCV 98.0 MCH 30.7 MCHC 31.3 L RDW 12.9 Plt Count 173 MPV 11.1 H Sodium 139 Potassium 4.2 Chloride 107 Carbon Dioxide 27 Anion Gap 5 L BUN 23 H Creatinine 1.70 H Estim Creat Clear Calc 65 Estimated GFR 41 L Glucose 131 H POC Capillary Glucose 111 H 181 H Calcium 8.4 07/12/23 07/12/23 16:54 11:20 WBC RBC Hgb Hct MCV MCH MCHC RDW Plt Count MPV Sodium Potassium Chloride Carbon Dioxide Anion Gap BUN Creatinine Estim Creat Clear Calc Estimated GFR Glucose POC Capillary Glucose 152 H 198 H Calcium Discharge Plan Discharge Attending physician on discharge: Christopher Beasley Consulting providers: Isauro Torres Discharging Clinician: Kelsey Mejía Patient Disposition: Home, Self-Care Activity: as tolerated Diet: diabetic Discharge Instructions: Discharge instructions: Return to the emergency department if:Nausea vomiting, fever, difficulty urinating, blood in the urine, severe pain May use Tylenol, ibuprofen or Advil for increased pain. Take medication as directed. Increase liquid intake. Strain urine each time he used the bathroom if urology advises.. Limit the amount of oxalate in your diet. this is found in the most common type of kidney stone. Foods that contain this are potatoes, seeds and nuts, wheat, so way, spinach, raspberries, chocolate, grapefruit juice or orange juice. Follow-up with urology in 7-10 days. Thank you for [facility]! Patient Instructions: Antibiotic Form, Fried Catheter Placement and Care (ED) Stand Alone Forms: General Discharge Information Follow-up/Referrals: Isauro Torres MD [Physician] - Ken Lizarraga MD [Physician] - Discharge Medications: Continued cyclobenzap
--- NOTE | 2023-07-13 11:36 | PC.NURSE ---
On 07/13/23, the student, [Susy Mendieta], provided care and completed [facility] documentation on this patient. I have reviewed the student's documentation and agree with the findings.
== END 2023-07-13 11:53 | disposition home or self-care (01) ==
PROVIDERS: Internal Medicine Critical Care Medicine; Physician Assistant; Urology; Admitting Provider Internal Medicine; PCP Physician Assistant; Visit Provider Internal Medicine
PROC: (CPT 52352; principal; 2023-07-11 09:00)
DX: N13.2 Hydronephrosis with renal and ureteral calculous obstruction (principal); N17.9 Acute kidney failure, unspecified; I12.9 Hypertensive chronic kidney disease with stage 1 through stage 4 chronic kidney disease, or unspecified chronic kidney disease; E13.22 Other specified diabetes mellitus with diabetic chronic kidney disease; N18.9 Chronic kidney disease, unspecified; R06.02 Shortness of breath; E66.9 Obesity, unspecified; Z68.43 Body mass index [BMI] 50.0-59.9, adult; Z87.891 Personal history of nicotine dependence; Z79.82 Long term (current) use of aspirin; Z79.84 Long term (current) use of oral hypoglycemic drugs; Z79.899 Other long term (current) drug therapy
CPT/HCPCS: 52356; 52352; 36415; 74420; 80048; 80053; 82365; 82948; 85027; 88300; 96374; 96375; 96376; A9270; C1758; C1769; C2617; G0378; G0379; J0690; J1100; J1815; J2250; J2270; J2405; J2704; J3010; J7030; Q9966

== ENCOUNTER 2023-07-18 14:59 | Inpatient (IN) | payer OTHER, MEDICAID, SELFPAY ==
[2023-07-18] VITALS (7 sets, daily range): BP systolic 140–157; BP diastolic 66–86; PULSE 106–126; RESP 20–22; TEMP 37.2–39.3; O2SAT 95–100
--- NOTE | ~2023-07-18 | XR_ITS ---
XR chest PICC line DATE: 07/24/2023 11:29 INDICATION: PICC line placement TECHNIQUE: Portable upright AP chest on 07/24/2023 1113 hours COMPARISON: 07/19/2023 portable AP chest at 2016 hours FINDINGS: Interval placement of right upper extremity PIC catheter in superior vena cava. Surgical clips are noted along the lower medial right cervical area. [place] devices of left humeral h ead. Normal heart size. Mild aortic arch calcification. No hilar or mediastinal enlargement. Minimal atelectasis or infiltrate is suggested in the lower lung zones. The lungs otherwise appear cl ear. No pulmonary vascular congestion, pleural effusion or pneumothorax is evident. IMPRESSION: Right upper extremity PIC catheter in superior vena cava Reviewed, dictated and finalized at [facility]. Reviewed, dictated and finalized at [facility].
--- NOTE | ~2023-07-18 | XR_ITS ---
EXAM: XR abdomen/kub 1V DATE: 07/18/2023 15:44 HISTORY: stent eval . COMPARISON: 07/11/2023 and 12/24/2017. FINDINGS: Streaky bibasilar scar/atelectasis. Normal bowel gas pattern. No organomegaly. Degenerativ e changes in the spine and hips. Left ureteral stent, with uncoiling of the proximal coil which still appears to project over the expected location of the left kidney and is stable since the prior study . Normal-appearing distal coil projecting over the expected location of the bladder. IMPRESSION: Unchanged left ureteral stent, in good position. Reviewed, dictated and finalized at location [facility].
--- NOTE | ~2023-07-18 | CT_ITS ---
EXAMINATION: CT abdomen pelvis w con DATE: 07/18/2023 21:24 INDICATION: abdominal pain, fever, RLQ tender, L ureter stent TECHNIQUE: Computed tomography (CT) of the abdomen and pelvis was performed with 100 mL Omnipaque-350 intravenous contrast. Automated exposure control and iterative reconstruction technique were employe d. The dose-length product was 1634.27 mGy-cm. COMPARISON: 07/10/2023; x-ray abdomen 07/18/2023. FINDINGS: Lower thorax: Minimal bibasilar scar/atelectasis. Liver: Mildly enlarged. Diffuse fatty infiltration. Subcentimeter right lobe hypodensity, too small t o characterize but most likely represents a cyst or hemangioma. Biliary/Gallbladder: Cholelithiasis. No bile duct dilation. Pancreas: Fatty infiltration. Spleen: Normal. Adrenals:No mass. Kidneys: Right renal atrophy and cortical scarring. Bilateral simple right cysts and lesions that are too small to characterize. Left ureteral stent terminating in an upper pole calyx. No hydronephrosis . Bilateral nonobstructing calculi. Mild bilateral perinephric stranding. GI tract: Fatty infiltration of the gastric wall. No small or large bowel dilation. Normal appendix. Diverticulosis without diverticulitis. Mesentery/Peritoneum: No ascites, mass, or free air. Retroperitoneum: No mass. Atherosclerotic abdominal aortic and/or arterial calcifications. Pelvis: A Fried decompresses the urinary bladder. The distal coil of the left ureteral stent terminat es in the bladder. Soft Tissues: Soft tissues and body wall unremarkable. Bones: No acute osseous finding. IMPRESSION: Hepatic steatosis and hepatomegaly. Cholelithiasis without CT evidence of cholecystitis. Submucosal fat deposition in the stomach likely from chronic gastritis. Diverticulosis without CT evidence of diverticulitis. Left ureteral stent, in stable and good position. No acute abdominopelvic process detected. Reviewed, dictated and finalized at location K.
--- NOTE | ~2023-07-18 | XR_ITS ---
EXAMINATION: XR chest 1V portable Exam Date/Time: 07/19/2023 20:15 CDT HISTORY: fever and new cough Comparison: None. RESULT: Lines, tubes, and devices: Surgical clips in the right neck. Lungs and pleura: Antilordotic positioning. Low volumes with crowding. Diffuse mild reticular opacit ies. Cardiomediastinal silhouette: Stable. Other: No acute osseous or upper abdominal finding. IMPRESSION: Mild interstitial edema. Reviewed, dictated and finalized at location K. IMPRESSION: Mild interstitial edema.
[2023-07-18] MEDS: SODIUM CHLORIDE 0.9% IV 1,000 ML 999 ML IV CONT ×2 (15:46→17:47)
--- NOTE | 2023-07-18 15:47 | ED.MALEGU ---
HPI - Male Genitourinary General Chief complaint: Urogenital-Male Stated complaint: kidney stones Time Seen by Provider: 07/18/23 15:09 History of Present Illness HPI Narrative: Patient is a 57-year-old male who presents ER with urinary retention. He has barely been able to urinate today only to about a couple of laps. He was moving left stenting for a kidney stone 1 week ago. He had the stone extracted at that time. He has been taking Tylenol 3 for his pain at home. He has not been on any antibiotics. Denies fevers or chills or sweats. No dysuria. No fevers chills or sweats. Bladder scan (200 mL of urine. Related Data Home Medications Medication Instructions Recorded Confirmed acetaminophen 300 mg-codeine 30 mg 1 tablet PO TID PRN Pain 07/10/23 07/10/23 tablet acetaminophen 500 mg tablet 1,500 mg PO HS PRN Pain (Scale 07/10/23 07/10/23 (Acetaminophen Extra Strength) Score 4-6) atorvastatin 10 mg tablet 10 mg PO DAILY 07/10/23 07/10/23 cyclobenzaprine 10 mg tablet 10 mg PO TID PRN Pain 07/10/23 07/10/23 ergocalciferol (vitamin D2) 1,250 1,250 mcg PO WEEKLY 07/10/23 07/10/23 mcg (50,000 unit) capsule glipizide 10 mg tablet, extended 20 mg PO DAILY 07/10/23 07/10/23 release 24 hr linagliptin 5 mg tablet (Tradjenta) 5 mg PO DAILY 07/10/23 07/10/23 Allergies Allergy/AdvReac Type Severity Reaction Status Date / Time No Known Allergies Allergy Verified 07/18/23 15:02 Review of Systems Review of Systems: All systems reviewed & are unremarkable except as noted in HPI and below Constitutional: Constitutional: Denies chills, Denies fatigue and Denies fever(s) ENT: Denies nasal congestion and Denies sore throat Cardiovascular: Cardiovascular: Denies chest pain, Denies rapid heart rate and Denies radiating jaw, neck or arm pain Respiratory: Respiratory: Denies cough and Denies dyspnea Gastrointestinal: Gastrointestinal: Reports abdominal pain, Denies diarrhea, Denies nausea and Denies vomiting Genitourinary: Genitourinary: Reports oliguria, Denies dysuria and Denies urinary frequency [facility] Past Medical History Medical History (Updated 07/18/23 @ 17:48 by Evan Lloyd MD) CKD (chronic kidney disease) Diabetes 1.5, managed as type 2 Hypertension Kidney stones Ureteral stent present Surgical History Surgical History (Updated 07/18/23 @ 15:49 by Evan Lloyd MD) H/O thyroidectomy Social History Social History Smoking status: Former smoker Tobacco type: cigarettes Alcohol intake: never Substance use: never Substance use type: does not use Lack of Transportation: No Lack of Food: Never True Current Housing: I Have Housing Concerned About Future Housing: No Difficulty Paying Gas/Electric Bills: No Difficulty Paying for Meds: No Currently Unemployed: No Education: High School Diploma/GED Difficulty w/ Childcare or Family Care: No Spiritual care concerns: No Exam Narrative: GENERAL: Well-appearing, obese, and in no acute distress. HEAD: Normocephalic, atraumatic. ENT: Mucous membranes moist. NECK: Supple. CHEST: Clear to auscultation. No respiratory distress. HEART: Regular rate and rhythm. Normal peripheral pulses. ABDOMEN: Soft, nontender, nondistended. EXTREMITIES: Normal range of motion. No edema. SKIN: Warm, dry, no rash. NEURO: Alert and oriented x3. PSYCH: Normal mood and affect. Course Course Emergency Course: Patient spiking a fever. White blood cell count elevated. Urine with potential infection. Given urinary retention with stent and infectious findings patient be admitted to hospitalist service. Ceftriaxone started. Dr. Lizarraga contacted and consulted. Vital Signs Vital signs: Vital Signs Temperature 98.9 F 07/18/23 15:21 Pulse Rate 116 H 07/18/23 15:21 Respiratory Rate 20 07/18/23 15:21 Blood Pressure 157/86 H 07/18/23 15:21 Pulse Oximetry
[2023-07-18 16:03] LABS: Basophils Absolute Auto 0.1 K/mm3 (0.0-0.1); Basophils Percent Auto 0.4 % (0.2-1.2); Eosinophils Absolute Auto 0.1 K/mm3 (0-0.3); Eosinophils Percent Auto 0.7 % (0-4.4); Hematocrit 46.5 % (42.0-52.0); Hemoglobin 14.7 g/dL (14.0-18.0); Immature Granulocyte Absolute 0.13 K/mm3 (0.00-0.031); Lymphocytes Absolute Auto 0.66 K/mm3 (0.9-3.2); Mean Corpuscular HGB Conc 31.6 g/dl (32-36); Mean Corpuscular Hemoglobin 29.8 pg (26-34); Mean Corpuscular Volume 94.1 fl (80-100); Mean Platelet Volume 11.5 fl (7.4-10.4); Monocytes Absolute Auto 1.8 K/mm3 (0.1-0.6); Monocytes Percent Auto 13.2 % (2.6-8.5); Neutrophils Absolute Auto 10.6 K/mm3 (1.3-6.7); Neutrophils Percent Auto 79.7 % (45.5-73.1); Platelet Count Result 202 k/mm3 (150-375); Red Blood Count 4.94 M/mm3 (4.6-6.20); Red Cell Distribution Width 13.1 % (11.5-14.5); White Blood Count 13.2 K/mm3 (4.5-10.0)
[2023-07-18 16:06] LABS: Appearance Urine Clear (Clear); Bacteria Urine None Seen /hpf; Bilirubin Urine Negative (Negative); Blood Urine 2+ (Negative); Color Urine Yellow (Yellow); Glucose Urine UA 1+ mg/dL (Negative); Ketones Urine Negative (Negative); Leukocyte Esterase Ur 1+ LEU/UL (Negative); Nitrate Urine Negative (Negative); Non Pathogenic Casts 0-2; Protein Urine 2+ mg/dL (Negative); RBC Urine 21-50 /hpf (0-2); Specific Grav Ur 1.015 (1.001-1.035); Squamous Epithelial Cell Urine None seen /hpf (Few); pH Urine 6.5 (5.0-9.0)
[2023-07-18 16:09] LABS: Add Urine Microscopic? YES
[2023-07-18 16:12] LABS: Alanine Aminotransferase 22 U/L (6-50); Alkaline Phosphatase 71 U/L (38-126); Anion Gap 11 mmol/L (8-16); Aspartate Amino Transferase 25 U/L (17-59); Blood Urea Nitrogen 18 mg/dL (9-20); Carbon Dioxide 19 mmol/L (22-30); Chloride 103 mmol/L (98-107); Estimated CRCL calculation 61 ml/min; Estimated Glomerular Filt Rate 39; Glucose 183 mg/dL (65-110); Potassium 4.1 mmol/L (3.4-5.0); Sodium 133 mmol/L (137-145)
[2023-07-18] MEDS: ONDANSETRON INJ 4 MG/2 ML VIAL IV PUSH (17:47)
[2023-07-18] MEDS: MORPHINE SULFATE (*CRX) 4 MG/ML INJ IV PUSH (17:47)
--- NOTE | 2023-07-18 18:09 | PM.IMHP ---
H&P: HPI History of Present Illness Date/Time: 07/18/23 18:09 Chief Complaint: Urinary retention, fever Narrative: This is a 57 year old male patient who had a recent hospitalization for obstructing ureteral stone where he underwent stone laser/extraction with left ureteral stent placement. Today patient barely able to urinate. Patient reports 2 days of nausea and vomiting with new onset fever while in the emergency department today. WBC count elevated at 13.2. Patient denies any back pain, states lower abdominal pain only. Fried catheter placed and Urology consulted with recommendation for admission. Patient denies any chest pain difficulty breathing, endorses chills. Review of Systems Review of Systems: All systems reviewed & are unremarkable except as noted in HPI and below PMFSH Past Medical History Medical History CKD (chronic kidney disease) Diabetes 1.5, managed as type 2 Hypertension Kidney stones Ureteral stent present Surgical History Surgical History H/O thyroidectomy Social History Social History Smoking status: Former smoker Tobacco type: cigarettes Alcohol intake: never Substance use: never Substance use type: does not use Lack of Transportation: No Lack of Food: Never True Current Housing: I Have Housing Concerned About Future Housing: No Difficulty Paying Gas/Electric Bills: No Difficulty Paying for Meds: No Currently Unemployed: No Education: High School Diploma/GED Difficulty w/ Childcare or Family Care: No Spiritual care concerns: No Meds Home Medications and Allergies Home Medications Medication Instructions Recorded Confirmed Type acetaminophen 300 mg-codeine 30 mg 1 tablet PO TID PRN Pain 07/10/23 07/18/23 History tablet acetaminophen 500 mg tablet 1,500 mg PO HS PRN Pain (Scale 07/10/23 07/18/23 History (Acetaminophen Extra Strength) Score 4-6) atorvastatin 10 mg tablet 10 mg PO DAILY 07/10/23 07/18/23 History cyclobenzaprine 10 mg tablet 10 mg PO TID PRN Pain 07/10/23 07/18/23 History ergocalciferol (vitamin D2) 1,250 1,250 mcg PO WEEKLY 07/10/23 07/18/23 History mcg (50,000 unit) capsule glipizide 10 mg tablet, extended 20 mg PO DAILY 07/10/23 07/18/23 History release 24 hr linagliptin 5 mg tablet (Tradjenta) 5 mg PO DAILY 07/10/23 07/18/23 History Allergies Allergy/AdvReac Type Severity Reaction Status Date / Time No Known Allergies Allergy Verified 07/18/23 15:02 Vital Signs Vital Signs - 24 hr 07/18/23 15:21 Temperature 37.2 C Pulse Rate 116 H Respiratory Rate 20 Blood Pressure 157/86 H Pulse Oximetry 96 Exam Narrative: GENERAL: Well-appearing, obese, and in no acute distress. HEAD: Normocephalic, atraumatic. ENT: Mucous membranes moist. NECK: Supple. No JVD. CHEST: Clear to auscultation. No respiratory distress. HEART: Regular rate and rhythm. Normal peripheral pulses. ABDOMEN: Soft, rotund, mild RLQ tenderness with mild grimace to palpation, no rebound or guarding GENITOURINARY: Fried catheter draining clear yellow urine EXTREMITIES: Normal range of motion. No edema. SKIN: Warm, dry, no rash. NEURO: Alert and oriented x3. PSYCH: Normal mood and affect. H&P: Results Labs Labs: Short CBC 07/18/23 Range/Units 15:57 WBC 13.2 H (4.5-10.0) K/mm3 Hgb 14.7 (14.0-18.0) g/dL Hct 46.5 (42.0-52.0) % Plt Count 202 (150-375) k/mm3 BMP 07/18/23 15:57 Sodium 133 L Potassium 4.1 Chloride 103 Carbon Dioxide 19 L BUN 18 Creatinine 1.80 H Glucose 183 H Calcium 9.0 Liver Function 07/18/23 Range/Units 15:57 Total Bilirubin 1.0 (0.2-1.3) mg/dL AST 25 (17-59) U/L ALT 22 (6-50) U/L Alkaline Phosphatase 71 (38-126) U/L Albumin 4.0 (3.5-5.1) g/dL Urine 07/18/23 Rang
[2023-07-18] MEDS: ACETAMINOPHEN 500 MG TABLET 1000 MG PO (18:38)
[2023-07-18 20:22] LABS: Hemoglobin A1C 7.3 % (<5.7)
--- NOTE | 2023-07-18 20:26 | PC.NURSE ---
This patient, Ralf Ramos, was admitted to [facility] Surg Room 312-01. Patient/family oriented to hospital policies and general routines including ID bracelet, bed and alarms, visiting hours, pain management, procedures, bathroom and other care routines, personal items, smoking policy, room service/diet, and visiting hours. Information on how to activate the Rapid Response Team has been discussed. Patient/Family are encouraged to report perceived risks to care and to ask questions if they do not understand what they are told or what they should do.
[2023-07-18] MEDS: ACETAMINOPHEN 325 MG TABLET 650 MG PO (20:43)
[2023-07-18] MEDS: SODIUM CHLORIDE 0.9% IV 1,000 ML 125 ML IV CONT (22:17)
[2023-07-18 22:39] LABS: Glucose Point of Care 108 mg/dl (65-105)
[2023-07-19] MEDS: MORPHINE SULFATE (*CRX) 4 MG/ML INJ IV PUSH (00:22)
--- NOTE | 2023-07-19 05:36 | PC.NURSE ---
informed MD Parres of urology consult for kidney stones, urinary retention, and uti
--- NOTE | 2023-07-19 05:48 | WPDURCON ---
Assessment and Plan Assessment and plan (1) Acute urinary retention: Code(s): R33.8 - Other retention of urine Status: Acute (2) Acute UTI: Code(s): N39.0 - Urinary tract infection, site not specified Status: Acute Assessment and Plan: Febrile UTI 2-weeks after left URS/stone extraction Urinary retention with PVR 200cc - ? if febrile UTI could be result of acute prostatitis - will add Flomax / plan voiding trial in approx. 2 days. - Ceftriaxone pending urine/blood cultures Urology Consult Note HPI Date Seen: 07/19/23 Requesting Physician: García Dewitt MD Primary Care Provider: Leo Sanchez, PA-C Consult Narrative Narrative: Ralf Ramos is a 57 year old male familiar to our practice since recent left ureteroscopy with stone extraction and stent placement by Dr. Torres approximately 2 weeks ago over a weekend and patient has a functional dominant left kidney and had a progression in baseline serum creatinine to 2.5 at the time of left ureteral stone obstruction. He has a known residual stone in each kidney. Patient does not describe antecedent history of difficulty voiding. Approximately 2 days prior to this admission he developed a sense of incomplete emptying with straining to urinate and started to run intermittent fevers. In the emergency department a postvoid residual of 200 cc was found a Fried catheter was placed. [place] [address] [place] scan shows his left ureteral stent to be in position. Review of Systems Constitutional: Constitutional: Reports chills and Reports fever(s) Cardiovascular: Cardiovascular: Denies chest pain, Denies lightheadedness, Denies palpitations and Denies dyspnea Respiratory: Respiratory: Denies dyspnea Gastrointestinal: Gastrointestinal: Denies diarrhea, Denies nausea and Denies vomiting Genitourinary: Genitourinary: Denies hematuria, Reports oliguria and Denies dysuria Endocrine: Endocrine: Denies palpitations PMFSH Past Medical History Medical History CKD (chronic kidney disease) Diabetes 1.5, managed as type 2 Hypertension Kidney stones Ureteral stent present Surgical History Surgical History H/O thyroidectomy Social History Social History Smoking status: Never smoker Tobacco type: cigarettes Alcohol intake: never Substance use: never Substance use type: does not use Lack of Transportation: No Lack of Food: Never True Current Housing: I Have Housing Concerned About Future Housing: No Difficulty Paying Gas/Electric Bills: No Difficulty Paying for Meds: No Currently Unemployed: No Education: High School Diploma/GED Difficulty w/ Childcare or Family Care: No Spiritual care concerns: No Meds Home Medications and Allergies Home Medications Medication Instructions Recorded Confirmed Type acetaminophen 300 mg-codeine 30 mg 1 tablet PO TID PRN Pain 07/10/23 07/18/23 History tablet acetaminophen 500 mg tablet 1,500 mg PO HS PRN Pain (Scale 07/10/23 07/18/23 History (Acetaminophen Extra Strength) Score 4-6) atorvastatin 10 mg tablet 10 mg PO DAILY 07/10/23 07/18/23 History cyclobenzaprine 10 mg tablet 10 mg PO TID PRN Pain 07/10/23 07/18/23 History ergocalciferol (vitamin D2) 1,250 1,250 mcg PO WEEKLY 07/10/23 07/18/23 History mcg (50,000 unit) capsule glipizide 10 mg tablet, extended 20 mg PO DAILY 07/10/23 07/18/23 History release 24 hr linagliptin 5 mg tablet (Tradjenta) 5 mg PO DAILY 07/10/23 07/18/23 History Allergies Allergy/AdvReac Type Severity Reaction Status Date / Time No Known Allergies Allergy Verified 07/18/23 15:02 Vital Signs Vital Signs - 24 hr 07/18/23 15:21 07/18/23 17:00 07/18/23 18:51 Temperature 98.9 F 100.1 F H 102.7 F H Pulse Rate 1
[2023-07-19 06:00] VITALS: BP 112/61; PULSE 110; RESP 22; TEMP 36.1; O2SAT 93
[2023-07-19] MEDS: SODIUM CHLORIDE 0.9% IV 1,000 ML 125 ML IV CONT ×3 (06:24→21:52)
[2023-07-19 06:30] LABS: Basophils Absolute Auto 0.1 K/mm3 (0.0-0.1); Basophils Percent Auto 0.4 % (0.2-1.2); Hematocrit 44.4 % (42.0-52.0); Hemoglobin 13.5 g/dL (14.0-18.0); Immature Granulocyte Absolute 0.29 K/mm3 (0.00-0.031); Immature Granulocyte Percent A 1.4 % (0-0.5); Lymphocytes Absolute Auto 0.81 K/mm3 (0.9-3.2); Mean Corpuscular HGB Conc 30.4 g/dl (32-36); Mean Corpuscular Hemoglobin 29.6 pg (26-34); Mean Corpuscular Volume 97.4 fl (80-100); Mean Platelet Volume 11.3 fl (7.4-10.4); Monocytes Absolute Auto 2.6 K/mm3 (0.1-0.6); Monocytes Percent Auto 12.8 % (2.6-8.5); Neutrophils Absolute Auto 16.5 K/mm3 (1.3-6.7); Neutrophils Percent Auto 81.4 % (45.5-73.1); Platelet Count Result 170 k/mm3 (150-375); Red Blood Count 4.56 M/mm3 (4.6-6.20); Red Cell Distribution Width 13.2 % (11.5-14.5); White Blood Count 20.2 K/mm3 (4.5-10.0)
[2023-07-19 06:55] LABS: Albumin Level 3.5 g/dL (3.5-5.1); Anion Gap 12 mmol/L (8-16); Blood Urea Nitrogen 17 mg/dL (9-20); Carbon Dioxide 18 mmol/L (22-30); Chloride 104 mmol/L (98-107); Estimated CRCL calculation 55 ml/min; Estimated Glomerular Filt Rate 34; Glucose 159 mg/dL (65-110); Phosphorus 2.3 mg/dL (2.5-4.5); Potassium 4.6 mmol/L (3.4-5.0); Sodium 134 mmol/L (137-145)
[2023-07-19 07:40] LABS: Glucose Point of Care 172 mg/dl (65-105)
[2023-07-19] MEDS: TAMSULOSIN HCL 0.4 MG CAPSULE PO (08:47)
[2023-07-19] MEDS: glipiZIDE XL 5 MG TABCR 20 MG PO (08:47)
[2023-07-19] MEDS: ENOXAPARIN 40 MG/0.4 ML SYRINGE SUB-Q (08:48)
[2023-07-19] MEDS: ATORVASTATIN 10 MG TABLET PO (08:48)
[2023-07-19] MEDS: ONDANSETRON INJ 4 MG/2 ML VIAL IV PUSH (08:53)
[2023-07-19] MEDS: ACETAMINOPHEN/CODEINE (*CRX) 300/30 MG TABLET 1 TAB PO ×2 (11:22→20:19)
[2023-07-19 11:29] LABS: Glucose Point of Care 189 mg/dl (65-105)
[2023-07-19 14:00] VITALS: BP 117/59; PULSE 93; RESP 20; TEMP 35.9; O2SAT 95
[2023-07-19 15:41] VITALS: TEMP 37.2
--- NOTE | 2023-07-19 16:35 | PM.IMPN ---
Progress Note: A&P Assessment and Plan (1) Acute urinary retention: Code(s): R33.8 - Other retention of urine Status: Acute Assessment and Plan: Fried placed. UA appears infected. Urine culture pending. Continue Fried and continue Rocephin pending culture and Urology assessment. Appreciate recommendations. Flomax added (2) Acute UTI: Code(s): N39.0 - Urinary tract infection, site not specified Status: Acute Assessment and Plan: Fried placed. UA appears infected. Urine culture pending. Continue Fried and continue Rocephin pending culture and Urology assessment. Appreciate recommendations. (3) Diabetes 1.5, managed as type 2: Code(s): E13.9 - Other specified diabetes mellitus without complications Status: Acute Assessment and Plan: ACHS fingerstick glucose with high dose insulin correction. Continue home medications after Med Rec (4) CKD (chronic kidney disease): Code(s): N18.9 - Chronic kidney disease, unspecified Status: Acute Assessment and Plan: CKD due to DM. Patient near recent baseline. Plan DVT prophylaxis with SCDs GI prophylaxis not indicated Code status full code Subjective Date/time seen: 07/19/23 16:35 Interval history: 57 year old male patient who had a recent hospitalization for obstructing ureteral stone where he underwent stone laser/extraction with left ureteral stent placement presenting with urinary retention and 2 days of nausea and vomiting as well as a new onset fever currently being treated for UTI/pyelonephritis/prostatitis. No overnight events noted. No chest pain or shortness of breath. No nausea, vomiting or diarrhea. No fevers or chills. Review of Systems Review of Systems: 12 point review of systems was assessed and was negative except as noted in the HPI Exam Narrative: General: No acute distress, alert and oriented per baseline HEENT: Atraumatic, normocephalic, mucous membranes moist CV: Regular rate and rhythm, S1, S2 Lungs: Clear to auscultation bilaterally, no rales or crackles noted, no wheezes, good air entry Abdomen: Soft, nontender, nondistended Extremities: Normal to inspection Skin: No rashes noted, no lesions or wounds seen Psych: Euthymic, normal affect Objective Data Vital Signs Vital Signs: Vital Signs - 24 hr 07/18/23 17:00 07/18/23 18:51 07/18/23 20:43 Temperature 100.1 F H 102.7 F H 102 F H Pulse Rate 126 H 115 H Respiratory Rate 20 22 H Blood Pressure 140/74 Pulse Oximetry 100 95 Oxygen Delivery 07/18/23 21:30 07/18/23 22:00 07/18/23 19:25 Temperature 99.6 F 100.9 F H 100.9 F H Pulse Rate 106 H 106 H Respiratory Rate 20 20 Blood Pressure 150/66 H 150/66 H Pulse Oximetry 95 95 Oxygen Delivery 07/18/23 23:13 07/19/23 06:00 07/19/23 08:45 Temperature 97.0 F L Pulse Rate 110 H Respiratory Rate 22 H Blood Pressure 112/61 Pulse Oximetry 93 Oxygen Delivery Room Air Room Air 07/19/23 14:00 07/19/23 15:41 Temperature 96.7 F L 99.0 F Pulse Rate 93 Respiratory Rate 20 Blood Pressure 117/59 L Pulse Oximetry 95 Oxygen Delivery Intake/Output Intake/Output: Intake & Output 07/16/23 07/17/23 07/18/23 07/19/23 23:59 23:59 23:59 23:59 Intake Total 1999 3208 Output Total 1400 Balance 1999 1808 Meds/Results Medications: Active Medications Generic Name Dose Route Start Last Admin Trade Name Freq PRN Reason Stop Dose Admin Acetaminophen 650 mg 07/18/23 18:10 07/18/23 20:43 Acetaminophen 325 Mg Tablet PO 650 mg Q4H PRN Administration Mild Pain (1-3) or Fever Acetaminophen/Codeine Phosphate 1 tab 07/18/23 23:41 07/19/23 11:22 Acetaminophen/Codeine (*Crx) 300/30 Mg Tablet PO 1 tab TID PRN Administration Pain Rated 4-6 Atorvastatin Calcium 10 mg 07/19/23 09:00 07/19/23 08:48 Atorvastatin 10 Mg Tablet PO 10 mg DAILY MINOO Ad
[2023-07-19 17:23] LABS: Glucose Point of Care 128 mg/dl (65-105)
[2023-07-19 20:19] VITALS: TEMP 38.4
[2023-07-19] MEDS: ACETAMINOPHEN 325 MG TABLET 650 MG PO (20:19)
--- NOTE | 2023-07-19 20:38 | PC.NURSE ---
oral temp taken by PCT is 102.2, RN rechecked oral temp which resulted as 101.2. Pt flush and complaining of new cough that is sometimes productive. Provider called, chest xray ordered. tylenol given. provider called with results of cxray and blood cultures. antibiotic dose increased.
[2023-07-19 21:03] LABS: Glucose Point of Care 135 mg/dl (65-105)
[2023-07-19 22:00] VITALS: BP 127/71; PULSE 107; RESP 22; TEMP 39; O2SAT 94
[2023-07-19 23:26] VITALS: BP 112/62; PULSE 85; RESP 20; TEMP 37.1; O2SAT 93
[2023-07-20 05:23] VITALS: TEMP 38.5
[2023-07-20] MEDS: ACETAMINOPHEN 325 MG TABLET 650 MG PO (05:23)
[2023-07-20 05:40] VITALS: BP 129/54; PULSE 104; RESP 22; TEMP 38.5; O2SAT 95
--- NOTE | 2023-07-20 05:43 | PC.NURSE ---
tylenol administered for temp of 101.3. pt face extremely red. cold wash rag applied to forehead. HOB elevated and cough & deep breathing encouraged.
[2023-07-20 06:42] LABS: Hematocrit 40.4 % (42.0-52.0); Hemoglobin 12.1 g/dL (14.0-18.0); Mean Corpuscular Hemoglobin 29.2 pg (26-34); Mean Corpuscular Volume 97.6 fl (80-100); Mean Platelet Volume 10.5 fl (7.4-10.4); Platelet Count Result 153 k/mm3 (150-375); Red Blood Count 4.14 M/mm3 (4.6-6.20); Red Cell Distribution Width 13.6 % (11.5-14.5); White Blood Count 14.1 K/mm3 (4.5-10.0)
[2023-07-20 06:52] LABS: Albumin Level 3.1 g/dL (3.5-5.1); Anion Gap 9 mmol/L (8-16); Blood Urea Nitrogen 21 mg/dL (9-20); Calcium 7.9 mg/dL (8.4-10.2); Carbon Dioxide 19 mmol/L (22-30); Chloride 106 mmol/L (98-107); Estimated CRCL calculation 53 ml/min; Estimated Glomerular Filt Rate 32; Glucose 132 mg/dL (65-110); Phosphorus 2.4 mg/dL (2.5-4.5); Potassium 3.9 mmol/L (3.4-5.0); Sodium 134 mmol/L (137-145)
[2023-07-20] MEDS: SODIUM CHLORIDE 0.9% IV 1,000 ML 125 ML IV CONT (06:59)
[2023-07-20 07:33] LABS: Glucose Point of Care 106 mg/dl (65-105)
[2023-07-20 07:46] LABS: Band Neutrophils Percent 6 % (0-6); Lymphocytes Absolute Manual 1.41 K/mm3 (1.1-4.5); Monocytes Absolute Manual 0.98 K/mm3 (0.1-0.90); Monocytes Percent Manual 7 % (3-9); Neutrophils Percent Manual 77 % (46-73); Platelet Estimate Adequate (Adequate); Total Cells Counted 100
[2023-07-20 07:47] LABS: Schistocytes None Seen (NORMAL)
[2023-07-20] MEDS: TAMSULOSIN HCL 0.4 MG CAPSULE PO (09:04)
[2023-07-20] MEDS: ATORVASTATIN 10 MG TABLET PO (09:04)
[2023-07-20] MEDS: glipiZIDE XL 5 MG TABCR 20 MG PO (09:04)
[2023-07-20] MEDS: ENOXAPARIN 40 MG/0.4 ML SYRINGE SUB-Q (09:05)
--- NOTE | 2023-07-20 10:48 | PM.IMPN ---
Progress Note: A&P Assessment and Plan (1) Acute urinary retention: Code(s): R33.8 - Other retention of urine Status: Acute Assessment and Plan: Rocephin initiated 07/18 Follow-up urine culture Appreciate urology consultation, add Flomax Plan voiding trial 07/21 (2) Acute UTI: Code(s): N39.0 - Urinary tract infection, site not specified Status: Acute Assessment and Plan: See above (3) Diabetes 1.5, managed as type 2: Code(s): E13.9 - Other specified diabetes mellitus without complications Status: Acute Assessment and Plan: Accu-Cheks, sliding scale insulin, check A1c Blood glucose reviewed 07/20 (4) CKD (chronic kidney disease): Code(s): N18.9 - Chronic kidney disease, unspecified Status: Acute Assessment and Plan: Monitor, stable Plan DVT prophylaxis with SCDs GI prophylaxis not indicated Code status full code Subjective Date/time seen: 07/20/23 10:48 Interval history: 57 year old male patient who had a recent hospitalization for obstructing ureteral stone where he underwent stone laser/extraction with left ureteral stent placement presenting with urinary retention and 2 days of nausea and vomiting as well as a new onset fever currently being treated for UTI/pyelonephritis/prostatitis. No overnight events noted. No chest pain or shortness of breath. No nausea, vomiting or diarrhea. No fevers or chills. Review of Systems Review of Systems: 12 point review of systems was assessed and was negative except as noted in the HPI Exam Narrative: General: No acute distress, alert and oriented per baseline HEENT: Atraumatic, normocephalic, mucous membranes moist CV: Regular rate and rhythm, S1, S2 Lungs: Clear to auscultation bilaterally, no rales or crackles noted, no wheezes, good air entry Abdomen: Soft, nontender, nondistended Extremities: Normal to inspection Skin: No rashes noted, no lesions or wounds seen Psych: Euthymic, normal affect Objective Data Vital Signs Vital Signs: Vital Signs - 24 hr 07/19/23 14:00 07/19/23 15:41 07/19/23 20:19 Temperature 96.7 F L 99.0 F 101.2 F H Pulse Rate 93 Respiratory Rate 20 Blood Pressure 117/59 L Pulse Oximetry 95 Oxygen Delivery 07/19/23 22:00 07/19/23 23:26 07/19/23 20:00 Temperature 102.2 F H 98.8 F Pulse Rate 107 H 85 Respiratory Rate 22 H 20 Blood Pressure 127/71 112/62 Pulse Oximetry 94 93 Oxygen Delivery Room Air 07/20/23 05:23 07/20/23 05:40 Temperature 101.3 F H 101.3 F H Pulse Rate 104 H Respiratory Rate 22 H Blood Pressure 129/54 L Pulse Oximetry 95 Oxygen Delivery Intake/Output Intake/Output: Intake & Output 07/17/23 07/18/23 07/19/23 07/20/23 23:59 23:59 23:59 23:59 Intake Total 1999 4376 1540 Output Total 0 725 Balance 1999 1036 814 Meds/Results Medications: Active Medications Generic Name Dose Route Start Last Admin Trade Name Freq PRN Reason Stop Dose Admin Acetaminophen 650 mg 07/18/23 18:10 07/20/23 05:23 Acetaminophen 325 Mg Tablet PO 650 mg Q4H PRN Administration Mild Pain (1-3) or Fever Acetaminophen/Codeine Phosphate 1 tab 07/18/23 23:41 07/19/23 20:19 Acetaminophen/Codeine (*Crx) 300/30 Mg Tablet PO 1 tab TID PRN Administration Pain Rated 4-6 Atorvastatin Calcium 10 mg 07/19/23 09:00 07/20/23 09:04 Atorvastatin 10 Mg Tablet PO 10 mg DAILY MINOO Administration Cyclobenzaprine HCl 10 mg 07/18/23 23:41 Cyclobenzaprine Hcl 10 Mg Tablet PO TID PRN Spasms Dextrose 12.5 gm 07/18/23 19:33 Dextrose 50% 25 Gm/50 Ml Syringe IV PUSH PRN PRN Hypoglycemia Protocol Enoxaparin Sodium 40 mg 07/19/23 09:00 07/20/23 09:05 Enoxaparin 40 Mg/0.4 Ml Syringe SUB-Q 40 mg DAILY MINOO Administration Ergocalciferol 50,000 units 07/25/23 09:00 Ergocalciferol 50,000 Units Capsule P
[2023-07-20 11:25] LABS: Glucose Point of Care 131 mg/dl (65-105)
[2023-07-20 12:29] VITALS: TEMP 36.8
[2023-07-20 14:00] VITALS: BP 126/62; PULSE 102; RESP 24; TEMP 36.1; O2SAT 93
[2023-07-20 16:32] LABS: Glucose Point of Care 160 mg/dl (65-105)
[2023-07-20] MEDS: AMPICILLIN 2 GM/NS 100 ML 2 GM/100 ML BAG IVPB ×2 (17:37→21:57)
[2023-07-20 21:36] LABS: Glucose Point of Care 159 mg/dl (65-105)
[2023-07-20 21:48] VITALS: BP 127/63; PULSE 95; RESP 26; TEMP 37.3; O2SAT 94
[2023-07-20] MEDS: ACETAMINOPHEN/CODEINE (*CRX) 300/30 MG TABLET 1 TAB PO (21:54)
[2023-07-21] MEDS: AMPICILLIN 2 GM/NS 100 ML 2 GM/100 ML BAG IVPB ×6 (01:34→23:17)
[2023-07-21 02:26] VITALS: TEMP 36.4
[2023-07-21 05:58] VITALS: BP 122/60; PULSE 84; RESP 26; TEMP 36.6; O2SAT 93
[2023-07-21 06:01] LABS: Basophils Percent Auto 0.5 % (0.2-1.2); Eosinophils Absolute Auto 0.2 K/mm3 (0-0.3); Eosinophils Percent Auto 2.8 % (0-4.4); Hematocrit 40.3 % (42.0-52.0); Hemoglobin 11.9 g/dL (14.0-18.0); Immature Granulocyte Absolute 0.04 K/mm3 (0.00-0.031); Immature Granulocyte Percent A 0.5 % (0-0.5); Lymphocytes Absolute Auto 1.03 K/mm3 (0.9-3.2); Mean Corpuscular HGB Conc 29.5 g/dl (32-36); Mean Corpuscular Hemoglobin 29.2 pg (26-34); Mean Platelet Volume 11.2 fl (7.4-10.4); Monocytes Percent Auto 12.4 % (2.6-8.5); Neutrophils Absolute Auto 5.6 K/mm3 (1.3-6.7); Neutrophils Percent Auto 70.8 % (45.5-73.1); Platelet Count Result 146 k/mm3 (150-375); Red Blood Count 4.07 M/mm3 (4.6-6.20); Red Cell Distribution Width 13.8 % (11.5-14.5); White Blood Count 7.9 K/mm3 (4.5-10.0)
[2023-07-21 06:19] LABS: Albumin Level 3.1 g/dL (3.5-5.1); Anion Gap 5 mmol/L (8-16); Blood Urea Nitrogen 25 mg/dL (9-20); Calcium 8.2 mg/dL (8.4-10.2); Carbon Dioxide 25 mmol/L (22-30); Chloride 107 mmol/L (98-107); Estimated CRCL calculation 48 ml/min; Estimated Glomerular Filt Rate 29; Glucose 135 mg/dL (65-110); Phosphorus 3.3 mg/dL (2.5-4.5); Potassium 3.9 mmol/L (3.4-5.0); Sodium 137 mmol/L (137-145)
[2023-07-21 07:44] LABS: Glucose Point of Care 125 mg/dl (65-105)
[2023-07-21] MEDS: TAMSULOSIN HCL 0.4 MG CAPSULE PO (08:53)
[2023-07-21] MEDS: ENOXAPARIN 40 MG/0.4 ML SYRINGE SUB-Q (08:53)
[2023-07-21] MEDS: ATORVASTATIN 10 MG TABLET PO (08:53)
[2023-07-21] MEDS: glipiZIDE XL 5 MG TABCR 20 MG PO (08:53)
[2023-07-21 11:16] LABS: Glucose Point of Care 196 mg/dl (65-105)
--- NOTE | 2023-07-21 12:38 | PM.IMPN ---
Progress Note: A&P Assessment and Plan (1) Bacteremia due to Enterococcus: Code(s): R78.81 - Bacteremia; B95.2 - Enterococcus as the cause of diseases classified elsewhere Status: Acute Assessment and Plan: 07/21: Positive 2 of 2 initial cultures. Susceptible to ampicillin which is being renally dosed. Repeat cultures tomorrow morning, if negative for 48 hours, will place line on Wednesday for 2 weeks of ampicillin 24 hour delivery. (2) Acute urinary retention: Code(s): R33.8 - Other retention of urine Status: Acute Assessment and Plan: Appreciate urology consultation, add Flomax Urine positive for Enterococcus, on ampicillin (3) Acute UTI: Code(s): N39.0 - Urinary tract infection, site not specified Status: Acute Assessment and Plan: See above (4) Diabetes 1.5, managed as type 2: Code(s): E13.9 - Other specified diabetes mellitus without complications Status: Acute Assessment and Plan: Accu-Cheks, sliding scale insulin, check A1c Blood glucose reviewed 07/21 (5) CKD (chronic kidney disease): Code(s): N18.9 - Chronic kidney disease, unspecified Status: Acute Assessment and Plan: 07/21: Continue to monitor. IV antibiotics renally adjusted today. Plan DVT prophylaxis with SCDs GI prophylaxis not indicated Code status full code Time Spent With Patient Time with patient: Greater than 35 minutes Subjective Date/time seen: 07/21/23 12:38 Interval history: 07/20: 57 year old male patient who had a recent hospitalization for obstructing ureteral stone where he underwent stone laser/extraction with left ureteral stent placement presenting with urinary retention and 2 days of nausea and vomiting as well as a new onset fever currently being treated for UTI/pyelonephritis/prostatitis. No overnight events noted. No chest pain or shortness of breath. No nausea, vomiting or diarrhea. No fevers or chills. 07/21: Patient feels well, due to have ureteral stent removed tomorrow. Urology consulted. Fried catheter in place now, plan for voiding trial. Urine culture positive for Enterococcus. Blood cultures 2 of 2 positive for Enterococcus faecalis, suspectible to ampicillin which is being renally dosed at this time. Plan for repeat cultures with AM labs and if negative for 48 hours, place line on Wednesday for home IV antibiotics for 2 weeks. Review of Systems Review of Systems: All systems reviewed & are unremarkable except as noted in HPI and below Exam Narrative: GENERAL: Well-appearing, obese, and in no acute distress. HEAD: Normocephalic, atraumatic. ENT: Mucous membranes moist. NECK: Supple. No JVD. CHEST: Clear to auscultation. No respiratory distress. HEART: Regular rate and rhythm. Normal peripheral pulses. ABDOMEN: Soft, rotund, no abdominal tenderness to palpation, normal bowel sounds, no rebound or guarding GENITOURINARY: Fried catheter draining clear yellow urine EXTREMITIES: Normal range of motion. No edema. SKIN: Warm, dry, no rash. NEURO: Alert and oriented x3. PSYCH: Normal mood and affect. Objective Data Vital Signs Vital Signs: Vital Signs - 24 hr 07/20/23 14:00 07/20/23 21:48 07/21/23 02:26 Temperature 36.1 C L 37.3 C 36.4 C Pulse Rate 102 H 95 Respiratory Rate 24 H 26 H Blood Pressure 126/62 127/63 Pulse Oximetry 93 94 Oxygen Delivery 07/20/23 20:00 07/21/23 05:58 07/21/23 08:53 Temperature 36.6 C Pulse Rate 84 Respiratory Rate 26 H Blood Pressure 122/60 Pulse Oximetry 93 Oxygen Delivery Room Air Room Air Intake/Output Intake/Output: Intake & Output 07/18/23 07/19/23 07/20/23 07/21/23 23:59 23:59 23:59 23:59 Intake Total 1999 4516 2902 940 Output Total 7891 2125 1025 Balance 1999 2949 777 -85 Meds/Results Medications: Active Medications Generic Name Dose Route Start Last Admin Trade Name Freq PRN Reason Stop Dose Admin Ac
[2023-07-21 14:00] VITALS: BP 115/57; PULSE 94; RESP 20; TEMP 35.7; O2SAT 94
[2023-07-21 16:58] LABS: Glucose Point of Care 143 mg/dl (65-105)
--- NOTE | 2023-07-21 18:32 | PC.NURSE ---
Pt is A&O4 male who has participated and contributed in plan of care. Pt denies any pain, but reports being stiff due to laying in bed. Pt getting IV abx and tolerating well. Pt denies any needs at this time. Pt was assisted with a sponge bath today and was encouraged to stand and move about room. Pt has a catheter, and ferraro care was done. Pt has been monitored for any changes in status. Will continue to monitor pt.
[2023-07-21 20:00] VITALS: O2SAT 94
[2023-07-21 20:20] LABS: Glucose Point of Care 105 mg/dl (65-105)
[2023-07-21 20:55] VITALS: BP 127/67; PULSE 84; RESP 18; TEMP 36.3; O2SAT 93
[2023-07-21] MEDS: ACETAMINOPHEN/CODEINE (*CRX) 300/30 MG TABLET 1 TAB PO (23:18)
[2023-07-22 04:49] VITALS: BP 122/62; PULSE 82; RESP 17; TEMP 36.2; O2SAT 90
[2023-07-22] MEDS: AMPICILLIN 2 GM/NS 100 ML 2 GM/100 ML BAG IVPB ×5 (05:04→20:06)
[2023-07-22 06:22] LABS: Basophils Percent Auto 0.6 % (0.2-1.2); Eosinophils Absolute Auto 0.3 K/mm3 (0-0.3); Eosinophils Percent Auto 4.5 % (0-4.4); Hematocrit 39.5 % (42.0-52.0); Hemoglobin 11.8 g/dL (14.0-18.0); Immature Granulocyte Absolute 0.03 K/mm3 (0.00-0.031); Immature Granulocyte Percent A 0.5 % (0-0.5); Lymphocytes Absolute Auto 1.07 K/mm3 (0.9-3.2); Lymphocytes Percent Auto 16.5 % (18.3-44.2); Mean Corpuscular HGB Conc 29.9 g/dl (32-36); Mean Corpuscular Hemoglobin 29.2 pg (26-34); Mean Corpuscular Volume 97.8 fl (80-100); Mean Platelet Volume 11.3 fl (7.4-10.4); Monocytes Absolute Auto 0.7 K/mm3 (0.1-0.6); Monocytes Percent Auto 10.8 % (2.6-8.5); Neutrophils Absolute Auto 4.3 K/mm3 (1.3-6.7); Neutrophils Percent Auto 67.1 % (45.5-73.1); Platelet Count Result 167 k/mm3 (150-375); Red Blood Count 4.04 M/mm3 (4.6-6.20); Red Cell Distribution Width 13.7 % (11.5-14.5); White Blood Count 6.5 K/mm3 (4.5-10.0)
[2023-07-22 06:36] LABS: Albumin Level 3.1 g/dL (3.5-5.1); Anion Gap 5 mmol/L (8-16); Blood Urea Nitrogen 20 mg/dL (9-20); Calcium 8.4 mg/dL (8.4-10.2); Carbon Dioxide 25 mmol/L (22-30); Chloride 108 mmol/L (98-107); Estimated CRCL calculation 61 ml/min; Estimated Glomerular Filt Rate 39; Glucose 120 mg/dL (65-110); Phosphorus 3.6 mg/dL (2.5-4.5); Potassium 3.9 mmol/L (3.4-5.0); Sodium 138 mmol/L (137-145)
--- NOTE | 2023-07-22 07:19 | WPDUROPN2 ---
Progress Note: A&P Assessment and Plan (1) Bacteremia due to Enterococcus: Code(s): R78.81 - Bacteremia; B95.2 - Enterococcus as the cause of diseases classified elsewhere Status: Acute (2) Acute urinary retention: Code(s): R33.8 - Other retention of urine Status: Acute (3) Left ureteral stone: Code(s): N20.1 - Calculus of ureter Status: Acute Assessment and Plan: Catheter out for voiding trial today - I expect he will do well Subjective Subjective Date/Time Seen: 07/22/23 07:19 Interval history: Nothing acute overnight Review of Systems Cardiovascular: Cardiovascular: Denies chest pain, Denies lightheadedness, Denies palpitations and Denies dyspnea Respiratory: Respiratory: Denies dyspnea Gastrointestinal: Gastrointestinal: Denies diarrhea, Denies nausea and Denies vomiting Genitourinary: Genitourinary: Denies hematuria and Denies dysuria Endocrine: Endocrine: Denies palpitations Exam Const: General: no acute distress Resp: Effort & Inspection: normal respiratory effort GI: Inspection: non-distended GI Palp: No abdominal tenderness and No Guarding due to palpation present (GI) Auscultation: normal bowel sounds Objective Data Vital Signs Vital Signs: Vital Signs - 24 hr 07/21/23 08:53 07/21/23 14:00 07/21/23 20:00 Temperature 96.2 F L Pulse Rate 94 Respiratory Rate 20 Blood Pressure 115/57 L Pulse Oximetry 94 94 Oxygen Delivery Room Air Room Air 07/21/23 20:55 07/22/23 04:49 Temperature 97.3 F L 97.1 F L Pulse Rate 84 82 Respiratory Rate 18 17 Blood Pressure 127/67 122/62 Pulse Oximetry 93 90 Oxygen Delivery Intake/Output Intake/Output: Intake & Output 07/19/23 07/20/23 07/21/23 07/22/23 23:59 23:59 23:59 23:59 Intake Total 4376 2902 1840 Output Total 2250 2125 1475 1400 Balance 2126 777 365 -1400 Meds/Results Medications: Active Medications Generic Name Dose Route Start Last Admin Trade Name Freq PRN Reason Stop Dose Admin Acetaminophen 650 mg 07/18/23 18:10 07/20/23 05:23 Acetaminophen 325 Mg Tablet PO 650 mg Q4H PRN Administration Mild Pain (1-3) or Fever Acetaminophen/Codeine Phosphate 1 tab 07/18/23 23:41 07/21/23 23:18 Acetaminophen/Codeine (*Crx) 300/30 Mg Tablet PO 1 tab TID PRN Administration Pain Rated 4-6 Atorvastatin Calcium 10 mg 07/19/23 09:00 07/21/23 08:53 Atorvastatin 10 Mg Tablet PO 10 mg DAILY MINOO Administration Cyclobenzaprine HCl 10 mg 07/18/23 23:41 Cyclobenzaprine Hcl 10 Mg Tablet PO TID PRN Spasms Dextrose 12.5 gm 07/18/23 19:33 Dextrose 50% 25 Gm/50 Ml Syringe IV PUSH PRN PRN Hypoglycemia Protocol Enoxaparin Sodium 40 mg 07/19/23 09:00 07/21/23 08:53 Enoxaparin 40 Mg/0.4 Ml Syringe SUB-Q 40 mg DAILY MINOO Administration Ergocalciferol 50,000 units 07/25/23 09:00 Ergocalciferol 50,000 Units Capsule PO Sa@0900 [facility] Glipizide 20 mg 07/19/23 08:00 07/21/23 08:53 Glipizide Xl 5 Mg Tabcr PO 20 mg DAILY@0800 MINOO Administration Glucagon 1 mg 07/18/23 19:33 Glucagon For Inj 1 Mg Vial IM PRN PRN Hypoglycemia Protocol Glucose 15 gm 07/18/23 19:33 Glucose Oral Gel 15 Gm Of Glucse In 37.5 Gm Tube PO PRN PRN Hypoglycemia Protocol Dextrose 1,000 mls @ 100 mls/hr 07/18/23 19:33 Dextrose 5% 1,000 Ml IVPB PRN PRN Hypoglycemia Protocol Ampicillin Sodium 2 gm in 100 mls @ 200 mls/hr 07/21/23 14:00 07/22/23 05:04 Ampicillin 2 Gm/Ns 100 Ml IVPB 200 mls/hr Q6HR MINOO Administration Insulin Aspart 2 - 4 units 07/18/23 21:00 07/21/23 20:22 Insulin Aspart (*Bkc) 100 Units/Ml SUB-Q Not Given HS MINOO Protocol Insulin Aspart 4 - 8 units 07/19/23 08:00 07/21/23 17:06 Insulin Aspart (*Bkc) 100 Units/Ml SUB-Q Not Given TIDWM [facility] Protocol Morphine Sulfate 4 mg 07/18/23 18:10 07/19/23
[2023-07-22 07:42] LABS: Glucose Point of Care 114 mg/dl (65-105)
[2023-07-22] MEDS: ENOXAPARIN 40 MG/0.4 ML SYRINGE SUB-Q (08:46)
[2023-07-22] MEDS: ATORVASTATIN 10 MG TABLET PO (08:46)
[2023-07-22] MEDS: glipiZIDE XL 5 MG TABCR 20 MG PO (08:46)
[2023-07-22] MEDS: TAMSULOSIN HCL 0.4 MG CAPSULE PO (08:46)
--- NOTE | 2023-07-22 11:02 | PM.IMPN ---
Progress Note: A&P Assessment and Plan (1) Bacteremia due to Enterococcus: Code(s): R78.81 - Bacteremia; B95.2 - Enterococcus as the cause of diseases classified elsewhere Status: Acute Assessment and Plan: 07/21: Positive 2 of 2 initial cultures. Susceptible to ampicillin which is being renally dosed. Repeat cultures tomorrow morning, if negative for 48 hours, will place line on Wednesday for 2 weeks of ampicillin 24 hour delivery. (2) Acute urinary retention: Code(s): R33.8 - Other retention of urine Status: Acute Assessment and Plan: Appreciate urology consultation, add Flomax 07/22: Fried removed and patient is voiding well, no further retention noted. (3) Acute UTI: Code(s): N39.0 - Urinary tract infection, site not specified Status: Acute Assessment and Plan: Urine positive for Enterococcus, on ampicillin (4) Diabetes 1.5, managed as type 2: Code(s): E13.9 - Other specified diabetes mellitus without complications Status: Acute Assessment and Plan: Accu-Cheks, sliding scale insulin, check A1c Blood glucose reviewed 07/22 (5) CKD (chronic kidney disease): Code(s): N18.9 - Chronic kidney disease, unspecified Status: Acute Assessment and Plan: 07/21: Continue to monitor. IV antibiotic dose adjusted today after improvement in renal function. Plan DVT prophylaxis with SCDs GI prophylaxis not indicated Code status full code Time Spent With Patient Time with patient: 25 - 35 minutes Subjective Date/time seen: 07/22/23 11:02 Interval history: 07/20: 57 year old male patient who had a recent hospitalization for obstructing ureteral stone where he underwent stone laser/extraction with left ureteral stent placement presenting with urinary retention and 2 days of nausea and vomiting as well as a new onset fever currently being treated for UTI/pyelonephritis/prostatitis. No overnight events noted. No chest pain or shortness of breath. No nausea, vomiting or diarrhea. No fevers or chills. 07/21: Patient feels well. Urology consulted. Fried catheter in place now, plan for voiding trial. Urine culture positive for Enterococcus. Blood cultures 2 of 2 positive for Enterococcus faecalis, susceptible to ampicillin which is being renally dosed at this time. Plan for repeat cultures with AM labs and if negative for 48 hours, place line on Saturday for home IV antibiotics for 2 weeks. 07/22: Patient feels well today. Fried catheter removed today and patient able to void with 11 mL residual. Patient reports constipation for which he usually takes bisacodyl at home. This is now ordered daily PRN. Repeat blood cultures drawn this morning. Dose timing of ampicillin changed due to improvement in renal function. Review of Systems Review of Systems: All systems reviewed & are unremarkable except as noted in HPI and below Exam Narrative: GENERAL: Well-appearing, obese, and in no acute distress. HEAD: Normocephalic, atraumatic. ENT: Mucous membranes moist. NECK: Supple. No JVD. CHEST: Clear to auscultation. No respiratory distress. HEART: Regular rate and rhythm. Normal peripheral pulses. ABDOMEN: Soft, rotund, no abdominal tenderness to palpation, normal bowel sounds, no rebound or guarding GENITOURINARY: Fried catheter draining clear yellow urine EXTREMITIES: Normal range of motion. No edema. SKIN: Warm, dry, no rash. NEURO: Alert and oriented x3. PSYCH: Normal mood and affect. Objective Data Vital Signs Vital Signs: Vital Signs - 24 hr 07/21/23 14:00 07/21/23 20:00 07/21/23 20:55 Temperature 35.7 C L 36.3 C L Pulse Rate 94 84 Respiratory Rate 20 18 Blood Pressure 115/57 L 127/67 Pulse Oximetry 94 94 93 Oxygen Delivery Room Air 07/22/23 04:49 Temperature 36.2 C L Pulse Rate 82 Respiratory Rate 17 Blood Pressure 122/62 Pulse Oximetry 90 Oxygen Delivery Intake/Output Intake/
[2023-07-22 11:40] LABS: Glucose Point of Care 205 mg/dl (65-105)
[2023-07-22] MEDS: BISACODYL 5 MG TABLET EC PO (12:18)
[2023-07-22] MEDS: INSULIN ASPART (*BKC) 100 UNITS/ML SUB-Q ×2 (12:18→20:20)
[2023-07-22 14:00] VITALS: BP 153/65; PULSE 91; RESP 18; TEMP 36.6; O2SAT 94
[2023-07-22 16:11] LABS: Glucose Point of Care 179 mg/dl (65-105)
--- NOTE | 2023-07-22 18:24 | PC.NURSE ---
Pt is A&O4 male who has participated and contributed in plan of care. Pt has been up in chair today and has tolerated well. Pt continues to get IV abx. Pt was given antifungal powder for under his stomach. Pt was started on dulcolax to assist with having a bm. Pt ferraro was removed, pt tolerated well. Will continue to monitor pt.
[2023-07-22] MEDS: TOLNAFTATE 1% POWDER 45 GM BTL 1 APPLIC TOPICAL (20:13)
[2023-07-22 20:16] LABS: Glucose Point of Care 225 mg/dl (65-105)
[2023-07-22 20:20] VITALS: PULSE 85; RESP 16; O2SAT 94
[2023-07-22 22:00] VITALS: BP 138/78; PULSE 85; RESP 16; TEMP 37.2; O2SAT 94
[2023-07-22] MEDS: ACETAMINOPHEN/CODEINE (*CRX) 300/30 MG TABLET 1 TAB PO (22:22)
[2023-07-23] MEDS: AMPICILLIN 2 GM/NS 100 ML 2 GM/100 ML BAG IVPB ×6 (01:23→20:58)
[2023-07-23 06:00] VITALS: BP 155/77; PULSE 79; RESP 16; TEMP 36.6; O2SAT 95
[2023-07-23 06:48] LABS: Basophils Absolute Auto 0.1 K/mm3 (0.0-0.1); Basophils Percent Auto 0.7 % (0.2-1.2); Eosinophils Absolute Auto 0.4 K/mm3 (0-0.3); Hematocrit 41.6 % (42.0-52.0); Hemoglobin 12.6 g/dL (14.0-18.0); Immature Granulocyte Absolute 0.03 K/mm3 (0.00-0.031); Immature Granulocyte Percent A 0.4 % (0-0.5); Lymphocytes Absolute Auto 1.12 K/mm3 (0.9-3.2); Lymphocytes Percent Auto 16.1 % (18.3-44.2); Mean Corpuscular HGB Conc 30.3 g/dl (32-36); Mean Corpuscular Hemoglobin 29.4 pg (26-34); Mean Platelet Volume 11.2 fl (7.4-10.4); Monocytes Absolute Auto 0.6 K/mm3 (0.1-0.6); Monocytes Percent Auto 8.6 % (2.6-8.5); Neutrophils Absolute Auto 4.8 K/mm3 (1.3-6.7); Neutrophils Percent Auto 69.2 % (45.5-73.1); Platelet Count Result 203 k/mm3 (150-375); Red Blood Count 4.29 M/mm3 (4.6-6.20); Red Cell Distribution Width 13.6 % (11.5-14.5)
[2023-07-23 07:02] LABS: Albumin Level 3.5 g/dL (3.5-5.1); Anion Gap 7 mmol/L (8-16); Blood Urea Nitrogen 16 mg/dL (9-20); Calcium 8.7 mg/dL (8.4-10.2); Carbon Dioxide 27 mmol/L (22-30); Chloride 106 mmol/L (98-107); Estimated CRCL calculation 65 ml/min; Estimated Glomerular Filt Rate 41; Glucose 135 mg/dL (65-110); Phosphorus 3.6 mg/dL (2.5-4.5); Potassium 3.6 mmol/L (3.4-5.0); Sodium 140 mmol/L (137-145)
[2023-07-23 08:26] LABS: Glucose Point of Care 121 mg/dl (65-105)
[2023-07-23] MEDS: TAMSULOSIN HCL 0.4 MG CAPSULE PO (08:44)
[2023-07-23] MEDS: ENOXAPARIN 40 MG/0.4 ML SYRINGE SUB-Q (08:44)
[2023-07-23] MEDS: ATORVASTATIN 10 MG TABLET PO (08:44)
[2023-07-23] MEDS: glipiZIDE XL 5 MG TABCR 20 MG PO (08:44)
[2023-07-23] MEDS: TOLNAFTATE 1% POWDER 45 GM BTL 1 APPLIC TOPICAL ×2 (08:47→20:56)
[2023-07-23] MEDS: BISACODYL 5 MG TABLET EC PO (09:00)
--- NOTE | 2023-07-23 11:56 | PM.IMPN ---
Progress Note: A&P Assessment and Plan (1) Bacteremia due to Enterococcus: Code(s): R78.81 - Bacteremia; B95.2 - Enterococcus as the cause of diseases classified elsewhere Status: Acute Assessment and Plan: 07/21: Positive 2 of 2 initial cultures. Susceptible to ampicillin which is being renally dosed. Repeat cultures tomorrow morning, if negative for 48 hours, will place line on Wednesday for 2 weeks of ampicillin 24 hour delivery. 07/23: Negative growth to date. IV company to teach patient use of infusion equipment today. Should be able to discharge tomorrow after line placement. (2) Acute urinary retention: Code(s): R33.8 - Other retention of urine Status: Acute Assessment and Plan: Appreciate urology consultation, add Flomax 07/22: Fried removed and patient is voiding well, no further retention noted. 07/23: Resolved (3) Acute UTI: Code(s): N39.0 - Urinary tract infection, site not specified Status: Acute Assessment and Plan: Urine and blood culture positive for Enterococcus, on ampicillin (4) Diabetes 1.5, managed as type 2: Code(s): E13.9 - Other specified diabetes mellitus without complications Status: Acute Assessment and Plan: Accu-Cheks, sliding scale insulin, check A1c Blood glucose reviewed 07/23 (5) CKD (chronic kidney disease): Code(s): N18.9 - Chronic kidney disease, unspecified Status: Acute Assessment and Plan: 07/21: Continue to monitor. IV antibiotic dose adjusted today after improvement in renal function. Plan DVT prophylaxis with SCDs GI prophylaxis not indicated Code status full code Time Spent With Patient Time with patient: 25 - 35 minutes Subjective Date/time seen: 07/23/23 11:56 Interval history: 07/20: 57 year old male patient who had a recent hospitalization for obstructing ureteral stone where he underwent stone laser/extraction with left ureteral stent placement presenting with urinary retention and 2 days of nausea and vomiting as well as a new onset fever currently being treated for UTI/pyelonephritis/prostatitis. No overnight events noted. No chest pain or shortness of breath. No nausea, vomiting or diarrhea. No fevers or chills. 07/21: Patient feels well. Urology consulted. Fried catheter in place now, plan for voiding trial. Urine culture positive for Enterococcus. Blood cultures 2 of 2 positive for Enterococcus faecalis, susceptible to ampicillin which is being renally dosed at this time. Plan for repeat cultures with AM labs and if negative for 48 hours, place line on Wednesday for home IV antibiotics for 2 weeks. 07/22: Patient feels well today. Fried catheter removed today and patient able to void with 11 mL residual. Patient reports constipation for which he usually takes bisacodyl at home. This is now ordered daily PRN. Repeat blood cultures drawn this morning. Dose timing of ampicillin changed due to improvement in renal function. 07/23: Patient reports feeling well except he is bored and constipated. He is urinating well and has had no residual on 3 post void bladder scans. No fever, chills, nausea, vomiting. Minor periodic cough present without dyspnea. Patient still complains of constipation, took Dulcolax yesterday and today. I encouraged more mobility, walking, etc to prompt BM. Blood cultures 24 hours without growth. Plan Midline tomorrow and discharge with ampicillin 12 grams continuous infusion over 24 hours daily for 12 days presuming cultures remain negative growth by tomorrow morning (48 hours.) Review of Systems Review of Systems: All systems reviewed & are unremarkable except as noted in HPI and below Exam Narrative: GENERAL: Well-appearing, obese, and in no acute distress. HEAD: Normocephalic, atraumatic. ENT: Mucous membranes moist. NECK: Supple. No JVD. CHEST: Clear to auscultation. No respiratory distress. HEART: Regular rate
[2023-07-23 11:57] LABS: Glucose Point of Care 144 mg/dl (65-105)
[2023-07-23 14:00] VITALS: BP 162/84; PULSE 84; RESP 16; TEMP 36.6; O2SAT 96
[2023-07-23 17:03] LABS: Glucose Point of Care 132 mg/dl (65-105)
[2023-07-23 20:15] VITALS: PULSE 86; RESP 22; O2SAT 96
[2023-07-23 20:53] LABS: Glucose Point of Care 174 mg/dl (65-105)
[2023-07-23 22:00] VITALS: BP 164/84; PULSE 86; RESP 22; TEMP 36.4; O2SAT 96
[2023-07-23] MEDS: ACETAMINOPHEN/CODEINE (*CRX) 300/30 MG TABLET 1 TAB PO (22:44)
[2023-07-23] MEDS: CYCLOBENZAPRINE HCL 10 MG TABLET PO (22:45)
[2023-07-24] MEDS: AMPICILLIN 2 GM/NS 100 ML 2 GM/100 ML BAG IVPB ×3 (01:37→11:36)
[2023-07-24 06:00] VITALS: BP 162/80; PULSE 74; RESP 22; TEMP 36.5; O2SAT 96
[2023-07-24 06:58] LABS: Basophils Absolute Auto 0.1 K/mm3 (0.0-0.1); Basophils Percent Auto 0.7 % (0.2-1.2); Eosinophils Absolute Auto 0.3 K/mm3 (0-0.3); Eosinophils Percent Auto 4.5 % (0-4.4); Hematocrit 40.4 % (42.0-52.0); Hemoglobin 12.1 g/dL (14.0-18.0); Immature Granulocyte Absolute 0.04 K/mm3 (0.00-0.031); Immature Granulocyte Percent A 0.6 % (0-0.5); Lymphocytes Percent Auto 17.6 % (18.3-44.2); Mean Corpuscular Hemoglobin 29.2 pg (26-34); Mean Corpuscular Volume 97.3 fl (80-100); Mean Platelet Volume 10.8 fl (7.4-10.4); Monocytes Absolute Auto 0.6 K/mm3 (0.1-0.6); Monocytes Percent Auto 9.1 % (2.6-8.5); Neutrophils Absolute Auto 4.6 K/mm3 (1.3-6.7); Neutrophils Percent Auto 67.5 % (45.5-73.1); Platelet Count Result 214 k/mm3 (150-375); Red Blood Count 4.15 M/mm3 (4.6-6.20); Red Cell Distribution Width 13.2 % (11.5-14.5); White Blood Count 6.8 K/mm3 (4.5-10.0)
[2023-07-24 07:12] LABS: Albumin Level 3.3 g/dL (3.5-5.1); Anion Gap 5 mmol/L (8-16); Blood Urea Nitrogen 14 mg/dL (9-20); Calcium 8.4 mg/dL (8.4-10.2); Carbon Dioxide 28 mmol/L (22-30); Chloride 107 mmol/L (98-107); Estimated CRCL calculation 65 ml/min; Estimated Glomerular Filt Rate 41; Glucose 130 mg/dL (65-110); Phosphorus 3.4 mg/dL (2.5-4.5); Potassium 3.4 mmol/L (3.4-5.0); Sodium 140 mmol/L (137-145)
[2023-07-24 08:06] LABS: Glucose Point of Care 132 mg/dl (65-105)
[2023-07-24] MEDS: glipiZIDE XL 5 MG TABCR 20 MG PO (08:20)
[2023-07-24] MEDS: TAMSULOSIN HCL 0.4 MG CAPSULE PO (08:21)
[2023-07-24] MEDS: TOLNAFTATE 1% POWDER 45 GM BTL 1 APPLIC TOPICAL (08:22)
[2023-07-24] MEDS: ATORVASTATIN 10 MG TABLET PO (08:22)
--- NOTE | 2023-07-24 08:58 | VASCRN ---
Order received for: PICC line insertion After review of the chart and the patient assessment, patient is not a candidate for the following reason(s): Patient has as GFR < 45. Salvage of upper arm veins due to potential dialysis. Practitioner ordered PICC placement after discussion. Provider notified:Fernandez Cordova APRN
[2023-07-24] MEDS: LIDOCAINE HCL 1% PF INJ 5 ML VIAL INFILTRATE (09:45)
--- NOTE | 2023-07-24 10:10 | PM.DS ---
DS: Admitting Diagnosis Discharge Date 07/24/2023 Admitting Diagnosis Acute urinary retention, acute UTI, diabetes 1.5 manage just type 2, CKD DS: Discharge Diagnosis Discharge Diagnosis (1) Bacteremia due to Enterococcus: Code(s): R78.81 - Bacteremia; B95.2 - Enterococcus as the cause of diseases classified elsewhere Status: Acute (2) Acute urinary retention: Code(s): R33.8 - Other retention of urine Status: Acute (3) Acute UTI: Code(s): N39.0 - Urinary tract infection, site not specified Status: Acute (4) Diabetes 1.5, managed as type 2: Code(s): E13.9 - Other specified diabetes mellitus without complications Status: Acute (5) CKD (chronic kidney disease): Code(s): N18.9 - Chronic kidney disease, unspecified Status: Acute Plan Discharged on home antibiotics ampicillin 12 g in 24 hours for 12 days via CAD pump DS: Summary Hospital Course Reason for hospitalization: This is a 57-year-old male patient who is admitted to the hospital for urinary tract infection status post kidney stone with ureteral stenting Hospital Course: This is a 57-year-old male patient admitted to the hospital due to urinary tract infection and acute urinary retention. Patient nausea vomiting and fever with elevated white blood cell count. Fried catheter was placed and patient started on tamsulosin. During febrile workup blood cultures were drawn which resulted positive with Enterococcus faecalis. Antibiotics were changed to ampicillin and sensitivities were agreeable with ampicillin. Renal function improved and ampicillin increased to every 4 hours. Blood cultures were redrawn and negative growth to date over 48 hours. PICC line placed for home infusion ampicillin 12 g per 24 hours for 12 more days. Status at Discharge Cognitive/behavioral status at discharge: Awake alert oriented and pleasant Functional status at discharge: independent ambulation Overall status at discharge: patient is back to baseline Time Spent with Patient Time attestation: Total time spent providing and/or coordinating discharge services: 50 minutes Time spent: Greater than 30 minutes Specific discharge activities: Spent 30 minutes at bedside reviewing discharge instructions and preparing IV infusion with home supply that was delivered today. Exam Narrative: GENERAL: Well-appearing, obese, and in no acute distress. HEAD: Normocephalic, atraumatic. ENT: Mucous membranes moist. NECK: Supple. No JVD. CHEST: Clear to auscultation. No respiratory distress. HEART: Regular rate and rhythm. Normal peripheral pulses. ABDOMEN: Soft, rotund, no abdominal tenderness to palpation, normal bowel sounds, no rebound or guarding GENITOURINARY: Fried catheter removed 2 days ago, no urinary retention or CVA tenderness. EXTREMITIES: Normal range of motion. No edema. SKIN: Warm, dry, no rash. NEURO: Alert and oriented x3. PSYCH: Normal mood and affect. DS: Data Data Completed and Pending Completed studies during hospitalization: Abdominal x-ray, abdominal pelvis CT, chest x-ray x2 Labs on day of discharge: Labs from last 24 hours 07/24/23 07/24/23 07/23/23 08:04 06:37 20:33 WBC 6.8 RBC 4.15 L Hgb 12.1 L Hct 40.4 L MCV 97.3 MCH 29.2 MCHC 30.0 L RDW 13.2 Plt Count 214 MPV 10.8 H Immature Gran % (Auto) 0.6 H Neut % (Auto) 67.5 Lymph % (Auto) 17.6 L [place] % (Auto) 9.1 H Eos % (Auto) 4.5 H Baso % (Auto) 0.7 Lymph # (Auto) 1.20 [place] # (Auto) 0.6 Eos # (Auto) 0.3 Baso # (Auto) 0.1 Abs Immat Gran (auto) 0.04 H Absolute Neuts (auto) 4.6 Absolute Nucleated RBC 0.0 Nucleated RBC % 0.0 Sodium 140 Potassium 3.4 Chloride 107 Carbon Dioxide 28 Anion Gap 5 L BUN 14 Creatinine 1.70 H Estim Creat Clear Calc 65 Estimated GFR 41 L Glucose 130 H POC Capillary Glucose 132 H 174 H Calcium 8.4 Phosphorus 3.4
[2023-07-24 11:40] LABS: Glucose Point of Care 148 mg/dl (65-105)
--- NOTE | 2023-07-29 06:51 | PC.NURSE ---
Blood cx from 07/22 are negative.
== END 2023-07-24 14:10 | disposition home health service (06) | DRG 690 ==
LOC: ANHED 17:48 → ANH3MEDSUR 18:53
PROVIDERS: Admitting Provider Chiropractor; Emergency Provider Emergency Medicine; PCP Physician Assistant; Visit Provider Nurse Practitioner
DX: N39.0 Urinary tract infection, site not specified (principal); R78.81 Bacteremia; K59.00 Constipation, unspecified; B95.2 Enterococcus as the cause of diseases classified elsewhere; R33.8 Other retention of urine; E11.22 Type 2 diabetes mellitus with diabetic chronic kidney disease; I12.9 Hypertensive chronic kidney disease with stage 1 through stage 4 chronic kidney disease, or unspecified chronic kidney disease; N18.9 Chronic kidney disease, unspecified; Z79.84 Long term (current) use of oral hypoglycemic drugs; Z96.0 Presence of urogenital implants; Z90.89 Acquired absence of other organs; Z87.891 Personal history of nicotine dependence
CPT/HCPCS: 36415; 36569; 71045; 74018; 74177; 80053; 80069; 81001; 82948; 83036; 85025; 87040; 87077; 87086; 87088; 87186; 96361; 96374; 96375; 99285; A9270; G0378; J0290; J0696; J1650; J1815; J2270; J2405; J7030; Q9967

== ENCOUNTER 2023-07-29 14:55 | Outpatient (NON) | payer OTHER, MEDICAID, SELFPAY ==
[2023-07-29 15:07] LABS: Basophils Absolute Auto 0.07 K/mm3 (0.00-0.10); Basophils Percent Auto 1.1 % (0.0-1.0); Eosinophils Absolute Auto 0.22 K/mm3 (0.02-0.50); Eosinophils Percent Auto 3.5 % (1.0-6.0); Hemoglobin 12.7 g/dL (14.0-18.0); Immature Granulocyte Absolute 0.02 K/mm3 (0.00-0.00); Immature Granulocyte Percent A 0.3 % (0.0-0.0); Lymphocytes Absolute Auto 1.51 K/mm3 (1.10-4.50); Lymphocytes Percent Auto 24.3 % (18.0-42.0); Mean Corpuscular Hemoglobin 29.9 pg (27.0-31.0); Mean Corpuscular Volume 96.5 fL (78.0-102.0); Mean Platelet Volume 11.2 fl (8.7-11.0); Monocytes Absolute Auto 0.57 K/mm3 (0.10-0.90); Monocytes Percent Auto 9.2 % (2.0-11.0); Neutrophils Absolute Auto 3.8 K/mm3 (1.7-7.2); Neutrophils Percent Auto 61.6 % (50.0-70.0); Platelet Count Result 262 K/mm3 (150-420); Red Blood Count 4.25 M/mm3 (4.70-6.10); Red Cell Distribution Width 13.4 % (11.6-14.4); White Blood Count 6.2 K/mm3 (4.8-10.8)
[2023-07-29 15:40] LABS: Alanine Aminotransferase 35 U/L (16-63); Albumin Level 2.2 g/dL (3.4-5.0); Alkaline Phosphatase 61 U/L (46-116); Anion Gap 4 mmol/L (8-16); Aspartate Amino Transferase 34 U/L (15-37); Bilirubin,Total 0.5 mg/dL (0.00-1.00); Blood Urea Nitrogen 12 mg/dL (7-18); Carbon Dioxide 30 mmol/L (21-32); Chloride 104 mmol/L (98-108); Estimated Glomerular Filt Rate 51; Glucose 127 mg/dL (70-99); Osmolality Calculated 287 mOsm/kg (285-295); Phosphorus 2.9 mg/dL (2.6-4.7); Sodium 138 mmol/L (136-145); Total Protein 7.4 g/dL (6.4-8.2)
[2023-07-29 15:43] LABS: Potassium 6.8 mmol/L (3.5-5.1)
== END 2023-07-29 14:56 | disposition home or self-care (01) ==
LOC: CHSLAB 14:57
PROVIDERS: Visit Provider Nurse Practitioner
DX: N39.0 Urinary tract infection, site not specified (principal); B95.2 Enterococcus as the cause of diseases classified elsewhere; E13.9 Other specified diabetes mellitus without complications; N18.9 Chronic kidney disease, unspecified
CPT/HCPCS: 36415; 80053; 84100; 85025

== ENCOUNTER 2023-07-30 12:49 | Outpatient (NON) | payer OTHER, MEDICAID, SELFPAY ==
[2023-07-30 14:56] LABS: Alanine Aminotransferase 30 U/L (16-63); Albumin Level 2.7 g/dL (3.4-5.0); Alkaline Phosphatase 68 U/L (46-116); Anion Gap 8 mmol/L (8-16); Aspartate Amino Transferase 15 U/L (15-37); Bilirubin,Total 0.4 mg/dL (0.00-1.00); Blood Urea Nitrogen 13 mg/dL (7-18); Calcium 9.2 mg/dL (8.5-10.1); Carbon Dioxide 29 mmol/L (21-32); Chloride 104 mmol/L (98-108); Estimated Glomerular Filt Rate 44; Glucose 137 mg/dL (70-99); Osmolality Calculated 294 mOsm/kg (285-295); Potassium 4.1 mmol/L (3.5-5.1); Sodium 141 mmol/L (136-145); Total Protein 7.8 g/dL (6.4-8.2)
== END 2023-07-30 12:50 | disposition home or self-care (01) ==
LOC: CHSLAB 12:52 → CHSHH 12:53
PROVIDERS: Visit Provider Physician Assistant
DX: N39.0 Urinary tract infection, site not specified (principal); B95.2 Enterococcus as the cause of diseases classified elsewhere; E13.9 Other specified diabetes mellitus without complications; N18.9 Chronic kidney disease, unspecified
CPT/HCPCS: 36415; 80053

== ENCOUNTER 2023-08-06 16:46 | Outpatient (NON) | payer OTHER, MEDICAID, SELFPAY ==
[2023-08-06 16:57] LABS: Basophils Absolute Auto 0.11 K/mm3 (0.00-0.10); Basophils Percent Auto 1.8 % (0.0-1.0); Eosinophils Absolute Auto 0.23 K/mm3 (0.02-0.50); Eosinophils Percent Auto 3.8 % (1.0-6.0); Hematocrit 46.5 % (40.0-54.0); Hemoglobin 14.4 g/dL (14.0-18.0); Immature Granulocyte Absolute 0.01 K/mm3 (0.00-0.00); Immature Granulocyte Percent A 0.2 % (0.0-0.0); Lymphocytes Percent Auto 22.9 % (18.0-42.0); Mean Corpuscular Hemoglobin 29.9 pg (27.0-31.0); Mean Corpuscular Volume 96.5 fL (78.0-102.0); Mean Platelet Volume 11.3 fl (8.7-11.0); Monocytes Absolute Auto 0.56 K/mm3 (0.10-0.90); Monocytes Percent Auto 9.2 % (2.0-11.0); Neutrophils Absolute Auto 3.8 K/mm3 (1.7-7.2); Neutrophils Percent Auto 62.1 % (50.0-70.0); Platelet Count Result 216 K/mm3 (150-420); Red Blood Count 4.82 M/mm3 (4.70-6.10); Red Cell Distribution Width 13.1 % (11.6-14.4); White Blood Count 6.1 K/mm3 (4.8-10.8)
[2023-08-06 17:12] LABS: Alanine Aminotransferase 31 U/L (16-63); Albumin Level 2.8 g/dL (3.4-5.0); Alkaline Phosphatase 78 U/L (46-116); Anion Gap 4 mmol/L (8-16); Bilirubin,Total 0.3 mg/dL (0.00-1.00); Blood Urea Nitrogen 12 mg/dL (7-18); Carbon Dioxide 31 mmol/L (21-32); Chloride 101 mmol/L (98-108); Estimated Glomerular Filt Rate 38; Glucose 267 mg/dL (70-99); Osmolality Calculated 290 mOsm/kg (285-295); Phosphorus 2.2 mg/dL (2.6-4.7); Potassium 4.2 mmol/L (3.5-5.1); Sodium 136 mmol/L (136-145); Total Protein 7.9 g/dL (6.4-8.2)
[2023-08-06 17:34] LABS: Aspartate Amino Transferase 27 U/L (15-37)
== END 2023-08-06 16:47 | disposition home or self-care (01) ==
PROVIDERS: PCP Physician Assistant; Visit Provider Nurse Practitioner
DX: N39.0 Urinary tract infection, site not specified (principal); B95.2 Enterococcus as the cause of diseases classified elsewhere; E13.9 Other specified diabetes mellitus without complications; N18.9 Chronic kidney disease, unspecified
CPT/HCPCS: 36415; 80053; 84100; 85025

== ENCOUNTER 2023-09-08 09:06 | Outpatient (CLI) | payer OTHER, MEDICAID, SELFPAY ==
--- NOTE | 2023-09-08 09:18 | ECG_ITS ---
Measurements Intervals [place] Rate: 83 P: 72 MS: 194 QRS: -48 QRSD: 127 T: 52 QT: 370 QTc: 437 Interpretive Statements SINUS RHYTHM LEFT ANTERIOR FASCICULAR BLOCK [QRS AXIS <= -45, QR IN I, RS IN II] ABNORMAL ECG NO PREVIOUS ECG AVAILABLE FOR COMPARISON Electronically Signed On 09-08-2023 10:45:54 PATIENT SERVICES TECHNICIAN by Steve Mariano M.D.
[2023-09-08 09:34] LABS: Partial Thromboplastin Time 25.5 SEC (23.90-30.70); Prothrombin Time 10.6 Seconds (9.50-12.10)
== END 2023-09-08 09:07 | disposition home or self-care (01) ==
LOC: CHSLAB 09:08
PROVIDERS: PCP Family Medicine; Visit Provider Anesthesiology
DX: Z01.818 Encounter for other preprocedural examination (principal); N18.9 Chronic kidney disease, unspecified; E78.00 Pure hypercholesterolemia, unspecified; I44.4 Left anterior fascicular block; R94.31 Abnormal electrocardiogram [ECG] [EKG]
CPT/HCPCS: 36415; 85610; 85730; 93005

== ENCOUNTER 2023-09-09 00:39 | Day surgery (SDC) | payer OTHER, MEDICAID, SELFPAY ==
[2023-09-07 13:05] VITALS: BMI 50.3
--- NOTE | 2023-09-07 13:13 | PC.NURSE ---
Report to the Outpatient Waiting Room, entrance under the green pavilion located off [facility], at time 0600 on date 09/09/23. Planned Procedure Time: 0730. Time changes happen often and if your time is changed the preop area will call you the afternoon before. - You and your visitor will be asked to self-screen and do not enter if you have any COVID symptoms. - A mask is optional within the hospital at this time. Patients may have clear liquids (water, carbonated beverages, clear teas, apple juice) until 3 hours prior to surgery with a maximum of 20 ounces. - No food from midnight until time of surgery Take the following medications with a SIP of water the morning of surgery: PAIN PILL IF NEEDED DO NOT STOP ANY OF YOUR OTHER PRESCRIPTION MEDICATIONS PRIOR TO SURGERY ?EXCEPT THE FOLLOWING Medications to discontinue per physician: N/A Date to take last dose: N/A Please no make-up, nail faroese, hairspray, perfume, deodorant, or body powder the day of surgery. No jewelry (including any body piercings) or valuables the day of surgery, leave them at home. Please take a shower or bath the night before, or the morning of, surgery with an antibacterial soap. Wear comfortable, loose fitting clothing. - Jewelry must be removed prior to entering the operating room. Rings and piercings that are not removed may be cut off. - The hospital will not accept responsibility for valuables. - Please leave all valuables, including medications, at home the day of surgery. If you are going home after surgery, a licensed hearse driver must drive you home. - NO public transportation without another adult if you receive anesthesia. - We recommend that an adult stay with you for 24 hours following discharge. - We also recommend that you do not drive, make important decision, drink alcoholic beverages, or take any drugs that were not prescribed by your health care provider for at least 24 hours after your discharge time. Follow any additional instructions given to you from your surgeon. If you or anyone in your household have experienced Covid symptoms in the past week, please notify your surgeon or the nurse liaison at the phone number below for possible testing. Telephone instructions given to PT - GINA MOREJON and asked if any additional questions and then verbalized understanding. Patient advised to call surgeon office or pre surgery nurse liaison [phone] if any additional questions.
--- NOTE | 2023-09-08 07:14 | PM.HPGS ---
History of Present Illness History of Present Illness Consent: Risks, benefits, and alternatives have been discussed and questions answered. Patient agrees to proceed with procedure. Chief complaint: Left Ureteral Stone Narrative: Ralf Ramos is a 57 year old male Who, several weeks ago, was admitted with a febrile UTI and 2 stones in his distal left ureter. Additionally he has bilateral nonobstructing renal stones. After treatment as of infection he now presents for definitive left ureteroscopy with stone extraction, possible laser lithotripsy, retrograde pyelography and stent replacement. The stones in his kidneys will need additional therapy in the future, likely with ESWL. His recent outpatient urine culture did grow Enterococcus and he has been started on ciprofloxacin preoperatively. Review of Systems Review of Systems: All systems reviewed & are unremarkable except as noted in HPI and below PMFSH Past Medical History Medical History CKD (chronic kidney disease) Diabetes 1.5, managed as type 2 Hypertension Kidney stones Ureteral stent present Surgical History Surgical History H/O thyroidectomy Social History Social History Smoking packs per day: 1.5 Smoking cigarettes per day: 30.0 Years smoked: 40 Smoking pack-years: 60.00 Smoking status: Former smoker Tobacco type: cigarettes Smoking end date: 02/25/23 Alcohol intake: never Substance use: never Substance use type: does not use Lack of Transportation: No Lack of Food: Never True Current Housing: I Have Housing Concerned About Future Housing: No Difficulty Paying Gas/Electric Bills: No Difficulty Paying for Meds: No Currently Unemployed: No Education: High School Diploma/GED Difficulty w/ Childcare or Family Care: No Living arrangements: with family Spiritual care concerns: No Meds Home Medications and Allergies Home Medications Medication Instructions Recorded Confirmed Type acetaminophen 300 mg-codeine 30 mg 1 tablet PO TID PRN Pain 07/10/23 09/07/23 History tablet atorvastatin 10 mg tablet 10 mg PO DAILY 07/10/23 09/07/23 History cyclobenzaprine 10 mg tablet 10 mg PO TID PRN Pain 07/10/23 09/07/23 History ergocalciferol (vitamin D2) 1,250 1,250 mcg PO WEEKLY 07/10/23 09/07/23 History mcg (50,000 unit) capsule glipizide 10 mg tablet, extended 20 mg PO DAILY 07/10/23 09/07/23 History release 24 hr linagliptin 5 mg tablet (Tradjenta) 5 mg PO DAILY 07/10/23 09/07/23 History Allergies Allergy/AdvReac Type Severity Reaction Status Date / Time No Known Allergies Allergy Verified 09/07/23 13:04 Exam Const: General: no acute distress Resp: Effort & Inspection: normal respiratory effort GI: Inspection: non-distended GI Palp: No abdominal tenderness and No Guarding due to palpation present (GI) Auscultation: normal bowel sounds Assessment and Plan Assessment and plan (1) Left ureteral stone: Code(s): N20.1 - Calculus of ureter Status: Acute (2) Bilateral nephrolithiasis: Code(s): N20.0 - Calculus of kidney Status: Inactive Assessment and Plan: cystoscopy, left ureteroscopy with stone extraction, possible laser lithotripsy, retrograde pyelography and stent placement
[2023-09-09] VITALS (8 sets, daily range): BP systolic 106–160; BP diastolic 69–90; PULSE 73–100; RESP 14–20; TEMP 36.2–36.7; O2SAT 95–100
--- NOTE | ~2023-09-09 | XR_ITS ---
EXAMINATION: XR fluoroscopy no charge DATE: 09/09/2023 08:10 INDICATION: Left ureteral stone. TECHNIQUE: 4 intraoperative fluoroscopic views of the abdomen and pelvis were obtained. COMPARISON: CT abdomen and pelvis 07/18/2023 FINDINGS: Initial images demonstrate a left internal ureteral stent in expected position. Additional images demonstrate removal of the stent. IMPRESSION: 1. Left internal ureteral stent removal. Reviewed, dictated and finalized at location A. UTER DESIGNER
--- NOTE | 2023-09-09 06:17 | WPDANESEPPF ---
Anes - Initial Pre Proc Eval Procedure: Operation Date: 09/09/23 07:30 Proposed Procedures p Cystoscopy, Left Ureteroscopy, Left Stone Extraction, Possible Holmium Laser, Possible Left Retrograde Pyelogram, Possible Left Stent Exchange - Dylon Campbell MD Date/Time: 09/09/23 06:17 Surgeon: Dylon Campbell MD Pre Op Diagnosis: Left Ureteral Stone Patient Data Age: 57 Gender: M Height: 1.78 m Weight: 154 kg Last Vital Signs Temp 36.7 C 09/09/23 06:11 Pulse 100 09/09/23 06:11 Resp 20 09/09/23 06:11 BP 160/90 H 09/09/23 06:11 Pulse Ox 96 09/09/23 06:11 O2 Del Method Room Air 09/09/23 06:11 Allergies Allergy/AdvReac Type Severity Reaction Status Date / Time No Known Allergies Allergy Verified 09/09/23 06:03 Home Medications Medication Instructions Recorded Confirmed Type acetaminophen 300 mg-codeine 30 mg 1 tablet PO TID PRN Pain 07/10/23 09/07/23 History tablet atorvastatin 10 mg tablet 10 mg PO DAILY 07/10/23 09/07/23 History cyclobenzaprine 10 mg tablet 10 mg PO TID PRN Pain 07/10/23 09/07/23 History ergocalciferol (vitamin D2) 1,250 1,250 mcg PO WEEKLY 07/10/23 09/07/23 History mcg (50,000 unit) capsule glipizide 10 mg tablet, extended 20 mg PO DAILY 07/10/23 09/07/23 History release 24 hr linagliptin 5 mg tablet (Tradjenta) 5 mg PO DAILY 07/10/23 09/07/23 History Patient hx anesthesia problems: post op nausea/vomiting Family hx anesthesia problems: none Results Review: All pre-operative results and documents have been reviewed as part of the pre-operative evaluation. [facility] Past Medical History Medical History CKD (chronic kidney disease) Diabetes 1.5, managed as type 2 Hypertension Kidney stones Ureteral stent present Surgical History Surgical History H/O thyroidectomy Social History Social History Smoking packs per day: 1.5 Smoking cigarettes per day: 30.0 Years smoked: 40 Smoking pack-years: 60.00 Smoking status: Former smoker Tobacco type: cigarettes Smoking end date: 02/25/23 Alcohol intake: never Substance use: never Substance use type: does not use Lack of Transportation: No Lack of Food: Never True Current Housing: I Have Housing Concerned About Future Housing: No Difficulty Paying Gas/Electric Bills: No Difficulty Paying for Meds: No Currently Unemployed: No Education: High School Diploma/GED Difficulty w/ Childcare or Family Care: No Living arrangements: with family Spiritual care concerns: No Anes - Eval Final PreProcedure Day of Procedure 09/09/23 06:17 Patient weight: morbidly obese Heart: regular rate and rhythm Lungs: decreased breath sounds Airway: Mallampati scale class II Neurological: alert and oriented Last oral intake: >/= 8 hours ASA classification: III Emergent: no Anesthetic plan: proceed Anesthesia type and monitoring: general LMA and standard monitoring Results Review: All pre-operative results and documents have been reviewed as part of the pre-operative evaluation. Informed Consent: The patient's anesthetic plan and its attendant risks and benefits were discussed with the patient/family/POA. Questions were solicited and answers provided to the satisfaction of the patient/family/POA.
[2023-09-09] MEDS: LACTATED RINGERS 1,000 ML 30 ML IV CONT (06:28)
[2023-09-09] MEDS: SCOPOLAMINE 1.5 MG PATCH TRANSDERM (06:28)
--- NOTE | 2023-09-09 06:29 | WPDHPUPDATE1 ---
History and Physical Update Update Date/Time: 09/09/23 06:29 History and Physical has been reviewed, including an updated exam of the patient. There are NO changes in the patient's condition. Risks, benefits, and alternatives have been discussed and questions answered. Patient agrees to proceed with procedure.
[2023-09-09 06:32] LABS: Glucose Point of Care 174 mg/dl (65-105)
[2023-09-09] MEDS: levoFLOXacin 500 MG/D5W 100 ML 500 MG/100 ML BAG 100 MG IVPB (07:23)
--- NOTE | 2023-09-09 08:04 | W.PM.PROC2 ---
Procedure Note - Detailed Date of Procedure 09/09/23 Pre-op Diagnosis Left Ureteral Stone Post-op Diagnosis Same Procedure Performed Cystoscopy, left ureteroscopy with stone extraction, left ureteral stent removed Surgeon Dylon Campbell MD Anesthesia General Description of Procedure Patient is brought to the operative suite was prepped draped in routine sterile fashion while in dorsal lithotomy position after the uneventful induction of a general anesthetic. Grasping forceps is used to extract the left ureteral stent with ease. A 0.035 in glidewire was advanced through the stent into the left renal pelvis. The distal ureter was dilated with an 8 F 10 F dilator. A short taper rigid ureteral scope was used perform ureteroscopy to the iliac vessels. There are no identifiable stones in the distal ureter. A 7.5 F flexible ureteral scope was placed in the renal pelvis. There were no proximal ureteral stones. He does have small stones in the lower pole of his left kidney. I grabbed 1 of these for stone analysis. The remainder of the stones likely would benefit from ESWL at some point. Scopes wires removed. I opted not to replace the stent. The patient tolerated the procedure well. Estimated Blood Loss 0 Drains No Packing No Pathology None sent Complications No immediate complications
[2023-09-09 08:10] LABS: Glucose Point of Care 162 mg/dl (65-105)
--- NOTE | 2023-09-09 08:24 | SUR.PHASEI ---
0823: Simple mask removed.
== END 2023-09-09 09:47 | disposition home or self-care (01) ==
PROVIDERS: PCP Family Medicine; Visit Provider Urology
PROC: (CPT 52352; principal; 2023-09-09 07:30)
DX: N20.0 Calculus of kidney (principal); I12.9 Hypertensive chronic kidney disease with stage 1 through stage 4 chronic kidney disease, or unspecified chronic kidney disease; E13.22 Other specified diabetes mellitus with diabetic chronic kidney disease; N18.9 Chronic kidney disease, unspecified; Z79.84 Long term (current) use of oral hypoglycemic drugs; Z87.891 Personal history of nicotine dependence; E66.01 Morbid (severe) obesity due to excess calories; Z68.42 Body mass index [BMI] 45.0-49.9, adult
CPT/HCPCS: 52352; 82365; 82948; 88300; 99199; A9270; C1769; J1100; J1956; J2405; J2704; J3010; J7120; Q9966

== ENCOUNTER 2023-10-20 10:12 | Outpatient (CLI) | payer OTHER, MEDICAID, SELFPAY ==
[2023-10-20 10:43] LABS: Hemoglobin A1C 9.8 % (<5.7)
[2023-10-20 11:22] LABS: Alanine Aminotransferase 33 U/L (16-63); Albumin Level 3.4 g/dL (3.4-5.0); Alkaline Phosphatase 86 U/L (46-116); Anion Gap 10 mmol/L (8-16); Aspartate Amino Transferase 26 U/L (15-37); Bilirubin,Total 0.7 mg/dL (0.00-1.00); Blood Urea Nitrogen 14 mg/dL (7-18); Calcium 8.7 mg/dL (8.5-10.1); Carbon Dioxide 29 mmol/L (21-32); Chloride 101 mmol/L (98-108); Cholesterol 126 mg/dL (0-200); Estimated Glomerular Filt Rate 44; Glucose 186 mg/dL (70-99); HDL Direct 43 mg/dL (40-60); LDL Cholesterol Calculated 57 mg/dL (<130); Osmolality Calculated 295 mOsm/kg (285-295); Potassium 4.3 mmol/L (3.5-5.1); Sodium 140 mmol/L (136-145); Total Protein 7.9 g/dL (6.4-8.2); Triglycerides 128 mg/dL (0-150)
[2023-10-23 12:07] LABS: Vitamin D 25 Hydroxy 55 ng/mL (30-100)
== END 2023-10-20 10:13 | disposition home or self-care (01) ==
PROVIDERS: PCP Physician Assistant; Visit Provider Physician Assistant
DX: E11.9 Type 2 diabetes mellitus without complications (principal); E55.9 Vitamin D deficiency, unspecified
CPT/HCPCS: 36415; 80053; 80061; 82306; 83036